=== PATIENT | male | born 1980 | race Caucasian/White ===

== ENCOUNTER 2019-04-23 17:31 | Inpatient (IN) | payer MEDICARE, MEDICAID ==
--- NOTE | 2019-04-23 18:01 | ED ---
Lower Extremity - HPI Summary HPI Summary: 38-year-old male presents to the emergency department today complaining of an open wound on his left foot which began today. Patient states he has been dealing with chronic wounds on his left lower extremity for"years" at a wound clinic. Patient states he was changing his dressing yesterday when a wound "popped" and drained yesterday evening on the dorsal aspect of his left second toe. Patient has had the left great toe and left third toe surgically amputated. Patient denies a past medical history of diabetes. Patient also has noted lower extremity edema and erythema bilaterally. Patient has no sensation in his lower extremities and there is a Charcot deformity noted of the left foot. Patient otherwise feels well and denies fevers, chest pain, abdominal pain, pain with urination nausea, vomiting, diarrhea. - History of Current Complaint Chief Complaint: EDSoftTissueLowExtr Stated Complaint: LT FOOT PAIN AND SWOLLEN PER PT Time Seen by Provider: 04/23/19 17:42 Hx Obtained From: Patient Mechanism Of Injury: Unknown Onset of Pain: Days, Prior to Arrival Onset/Duration: Still Present Severity Initially: Moderate Severity Currently: Severe Pain Intensity: 8 Pain Scale Used: 0-10 Numeric Timing: Constant Location: Is Discrete @ - Left foot Character Of Pain: Sharp Associated Signs And Symptoms: Positive: Swelling, Redness. Negative: Fever Aggravating Factor(s): Ambulation, Movement, Weight Bearing Alleviating Factor(s): Rest Able to Bear Weight: Yes - Allergies/Home Medications Allergies/Adverse Reactions: Allergies Allergy/AdvReac Type Severity Reaction Status Date / Time cefdinir Allergy See Comment Verified 04/23/19 17:38 Home Medications: Home Medications ALPRAZolam [Alprazolam] 1 tab PO TID PRN 04/23/19 [History Confirmed 04/23/19] Albuterol Sulfate [Albuterol Sulfate Hfa] 1 mdi INHH Q4HR PRN 04/23/19 [History Confirmed 04/23/19] Buprenorp/Nalox 8-2 MG FILM [Suboxone 8 mg-2 mg Sl Film] 1 film PO TID 04/23/19 [History Confirmed 04/23/19] Citalopram TAB* [CeleXA TAB*] 40 mg PO BEDTIME 04/23/19 [History Confirmed ] Fluticasone Propion/Salmeterol [Wixela 500-50 Inhub] 1 ea BOTH NARES Q6HR PRN [History Confirmed 04/23/19] Fluticasone-Salmeterol 500-50* [Advair Diskus 500-50*] 1 puff INH BID 04/23/19 [ History Confirmed 04/23/19] Gabapentin 2 tab PO TID 04/23/19 [History Confirmed 04/23/19] Gemfibrozil TAB* [Lopid TAB*] 600 mg PO BID 04/23/19 [History Confirmed ] Lisinopril [Zestril 5 MG-] 5 mg PO DAILY 04/23/19 [History Confirmed 04/23/19] Metoprolol Succinate 1 tab PO DAILY 04/23/19 [History Confirmed 04/23/19] Omeprazole 1 tab PO DAILY 04/23/19 [History Confirmed 04/23/19] Pentoxifylline CR TAB* [TRENtal CR TAB*] 400 mg PO Q8H 04/23/19 [History Confirmed 04/23/19] Tamsulosin CAP* [Flomax CAP*] 1 cap PO DAILY 04/23/19 [History Confirmed ] PMH/Surg Hx/FS Hx/Imm Hx Infectious Disease History: Yes Infectious Disease History: Denies: Traveled Outside the [place] in Last 30 Days Review of Systems Constitutional: Negative Eyes: Negative ENT: Negative Cardiovascular: Negative Respiratory: Negative Gastrointestinal: Negative Genitourinary: Negative Positive: Arthralgia, Decreased ROM, Edema Positive: Rash Neurological/Mental Status: Negative Psychological: Normal All Other Systems Reviewed And Are Negative: Yes Physical Exam - Summary Physical Exam Summary: Patient is no acute distress. There is bilateral lower extremity edema and erythema consistent with chronic venous insufficiency. There is an open wound approximately 0.5 cm in diameter to the plantar aspect of the left metatarsal. There is a new open wound draining purulent brown fluid from the dorsal aspect of the left second MCP. Patient has diminished sensation with a Charcot deformity of the left foot. Triage Information Reviewed: Yes Vital Signs On Initial Exam: Initial Vitals Temp Pulse Resp BP Pulse Ox 98.9 F 101 19 137/77 98 04/23/19 17:33 04/23/19 17:33 04/23/19 17:33 04/23/19 17:33 04/23/19 17:33 Vital Signs Reviewed: Yes Appearance: Positive: Well-Appearing, No Pain Distress, Well-Nourished Skin: Positive: Warm, Skin Color Reflects Adequate Perfusion Eyes: Positive: EOMI, ALPHONSO ENT: Positive: Hearing grossly normal Respiratory/Lung Sounds: Positive: Clear to Auscultation, Breath Sounds Present Cardiovascular: Positive: RRR, S1, S2 Abdomen Description: Positive: Nontender, Soft Bowel Sounds: Positive: Present Musculoskeletal: Positive: Strength/ROM Intact Neurological: Positive: Sensory/Motor Intact, Alert, Oriented to Person Place, Time, Facial Symmetry, Speech Normal Psychiatric: Positive: Normal, Affect/Mood Appropriate AVPU Assessment: Alert Procedures - Sedation Patient Received Moderate/Deep Sedation with Procedure: No Diagnostics - Vital Signs Vital Signs Temp Pulse Resp BP Pulse Ox 04/23/19 17:33 98.9 F 101 19 137/77 98 - Laboratory Result Diagrams: 04/24/19 05:20 04/24/19 05:20 Lab Statement: Any lab studies that have been ordered have been reviewed, and results considered in the medical decision making process. Lower Extremity Course/Dx - Course Course Of Treatment: 38-year-old male was evaluated in the emergency department today for left foot infection. Vitals noted and stable. Patient afebrile. X- ray was done which shows evidence of osteomyelitis of the second metatarsal. X- ray also shows fracture of the second distal metatarsal with dislocation. Laboratory studies returned showing leukocytosis with a white blood cell count of 14.1 with absolutely neutrophil count of 12. CRP is elevated at 85.67. ESR is 90. Blood glucose returned at 153. A1c 6.5. There are no significant electrolyte disturbances. Orthopedics, Dr. Duke was consulted at 1900 who believed the patient to be admitted for IV antibiotics and further evaluation of possible myelitis. Dr. Duke states she will see the patient tomorrow morning and that an MRI should be ordered for further evaluation. Hospitalist, Dr. Sebastian was consulted at 190 for admission of the patient for further evaluation and management. Patient was given IV clindamycin in the emergency department prior to admission to [facility]. - Diagnoses Differential Diagnosis/HQI/PQRI: Positive: Arthritis, Cellulitis, Fracture ( Closed), Infection, Osteomyelitis, Septic Arthritis Provider Diagnoses: Osteomyelitis, Left foot pain - Physician Notifications Discussed Care Of Patient With: Marichuy Duke - to admit the patient for further evaluation and management of osteomyelitis and IV antibiotics. Instructed by Provider To: Admit As Inpatient Admit/Transition Orders Completed By ED Provider: No Discharge ED - Sign-Out/Discharge Documenting (check all that apply): Patient Departure - Discharge Plan Condition: Stable Disposition: ADMITTED TO [facility] - Billing Disposition and Condition Condition: STABLE Disposition: Admitted to [facility] - Attestation Statements Provider Attestation: I was available for consult. This patient was seen by the TERI. The patient was not presented to, seen by, or examined by me. Connor Bowser MD
[2019-04-23 18:49] LABS: ABS Eosinophils 0.2 10^3/ul (0-0.6); ABS Lymphocytes 1.1 10^3/ul (1.0-4.8); ABS Monocytes 0.8 10^3/ul (0-0.8); Eosinophil % 1.6 %; Hematocrit 33 % (42-52); Hemoglobin 11.1 g/dL (14.0-18.0); Lymphocyte % 7.5 %; Mean Corpuscular HGB Conc 34 g/dL (31-36); Mean Corpuscular Hemoglobin 30 pg (27-31); Mean Corpuscular Volume 88 fL (80-94); Mean Platelet Volume 8.6 fL (7.4-10.4); Platelet Count 290 10^3/uL (150-450); Red Blood Count 3.77 10^6 /uL (4.18-5.48); Red Cell Distribution Width 14 % (10-15); White Blood Count 14.1 10^3/uL (3.5-10.8)
[2019-04-23] MEDS ORDERED: Clindamycin 600 MG/D5W BAG(*) 600 MG/50 ML BAG IV ONE (19:00)
[2019-04-23] MEDS ORDERED: Nicotine PATCH 14 MG/24 HR* PATCH TRANSDERM ONE (19:08)
[2019-04-23] MEDS ORDERED: Buprenorp/Nalox 8-2 MG FILM SL FILM ONE (19:10)
[2019-04-23 19:15] LABS: Albumin 3.8 g/dL (3.2-5.2); Albumin/Globulin Ratio 1.2 (1-3); BUN/Creatinine Ratio 20.5 (8-20); C Reactive Protein 85.67 mg/L (<8.01); Calcium 8.9 mg/dL (8.6-10.3); EGFR African American 134.8 (>60); EGFR Non-African American 111.4 (>60); Globulin 3.2 g/dL (2-4); Potassium 4.2 mmol/L (3.5-5.0); Total Bilirubin 0.2 mg/dL (0.2-1.0)
[2019-04-23 20:05] LABS: Erythrocyte Sed Rate 90 mm/Hr (0-14)
[2019-04-23] MEDS ORDERED: Albuterol HFA INHALER* 8 gm MDI INH PRN (20:17)
[2019-04-23] MEDS ORDERED: Acetaminophen TAB* 325 MG PO PRN (20:19)
[2019-04-23] MEDS ORDERED: Ondansetron INJ* 2 MG/ML VIAL IV PRN (20:19)
[2019-04-23] MEDS ORDERED: Nicotine Lozenge* mini 4 MG LOZNG.MINI MT PRN (20:23)
[2019-04-23] MEDS ORDERED: PROCHLORPERAZINE INJ 5 MG/ML 2 ML VIAL IV PRN (20:24)
[2019-04-23] MEDS ORDERED: Vancomycin(*) 2,000 MG in NS 0.9% 250 ML* 250 ML IVPB ONE (20:25)
[2019-04-23] MEDS ORDERED: Dextrose 50% Syringe 50 ML* 25 GM/50 ML SYRINGE IV PUSH PRN (20:28)
[2019-04-23] MEDS ORDERED: NS 0.9% 1000 ML** 1,000 ML IV SCH (20:30)
[2019-04-23] MEDS ORDERED: NS 0.9% 250 ML* 250 ML ONE (20:34)
[2019-04-23] MEDS ORDERED: Vancomycin(*) 2,000 MG in NS 0.9% 500 ML* 500 ML IVPB ONE (21:00)
[2019-04-23] MEDS ORDERED: Vancomycin per Pharmacy* NOTE FOLLOW UP SCH (21:00)
[2019-04-23] MEDS ORDERED: Citalopram TAB* 40 MG PO SCH (21:00)
[2019-04-23] MEDS: NS 0.9% 1000 ML** 2,000 ML IV ONE (21:13)
[2019-04-23] MEDS: Enoxaparin(*) 40 MG/0.4 ML SYR SUBCUT SCH (22:58)
[2019-04-23] MEDS: ALPRAZolam TAB* 0.5 MG PO PRN (22:58)
[2019-04-23] MEDS: Gabapentin CAP(*) 400 MG PO SCH (22:59)
[2019-04-23] MEDS: Gemfibrozil TAB* 600 MG PO SCH (23:00)
[2019-04-23] MEDS ORDERED: Pentoxifylline CR TAB* 400 MG PO SCH (23:00)
[2019-04-23] MEDS: Buprenorp/Nalox 8-2 MG FILM SL FILM SCH (23:02)
--- NOTE | 2019-04-23 23:28 | HP ---
ADMISSION HISTORY AND PHYSICAL: DATE OF ADMISSION: 04/23/19 PRIMARY CARE PROVIDER: PEÑA Brice PROVIDER: Gogo Montelongo NP ATTENDING PHYSICIAN: Dr. Mott * (DICTATED BY GOGO MONTELONGO NP) OTHER PROVIDER: Dr. Duke. CHIEF COMPLAINT: Left foot pain. HISTORY OF PRESENT ILLNESS: This is a 38-year-old male with past medical history significant for diabetes, hypertension, hyperlipidemia, MRSA, who came to the emergency room on 04/23/19 after a wound on his left foot opened last night and started to drain. He has been dealing with chronic wounds to his left lower extremity for the past 5 years. 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 He has had multiple amputations in the past and has been dealing with chronic nonhealing wounds. Yesterday, he was changing the dressing to his left foot where the wound on the dorsal aspect of his second toe "popped and started draining copious amounts of yoon fluid." He had day before feeling chills for the past week, but no fevers. In the emergency room, he received a dose of clindamycin and Suboxone at the dose that he normally takes. Nicotine patch and 2 L of IV fluids were ordered. Hospitalist were asked to evaluate the patient for admission. ED provider also spoke with Dr. Duke, who intends to see the patient tomorrow. PAST MEDICAL HISTORY: Charcot deformity of the left foot, MRSA, asthma, hyperlipidemia, diabetes type 2, and hypertension. PAST SURGICAL HISTORY: Left great toe and third toe amputation, right foot metatarsal amputation, gastric bypass. HOME MEDICATIONS: 1. Fluticasone/salmeterol 500/50 one puff inhalation b.i.d. 2. Lisinopril 5 mg p.o. daily. 3. Trental 400 mg p.o. q.8 hours. 4. Tamsulosin 0.4 mg p.o. daily. 5. Gemfibrozil 600 mg p.o. b.i.d. 6. Citalopram 40 mg p.o. at bedtime. 7. Gabapentin 800 mg p.o. t.i.d. 8. Suboxone film 8/2 mg 1 film sublingually t.i.d. 9. Alprazolam 1 mg p.o. t.i.d. p.r.n. 10. Albuterol inhaler 1 inhalation q.4 hours p.r.n. 11. Fluticasone propionate/salmeterol 500/50 one inhalation in bilateral nares q.6 hours p.r.n. 12. Metoprolol succinate 25 mg p.o. daily. 13. Omeprazole 20 mg p.o. daily. ALLERGIES: CEFDINIR. FAMILY HISTORY: Sister has depression and arthritis. He is unaware of past medical history of his parents. SOCIAL HISTORY: He is a 2-pack per day smoker since age 17. He denies any EtOH use, does smoke marijuana daily. He is on disability due to his legs. He is not and has 8 children. REVIEW OF SYSTEMS: A 12-point system review was performed, which was positive for chills, chronic wound to the left lower extremity, discoloration to bilateral lower extremities since he was a teenager. Denies any fever, dizziness, lightheadedness, chest pain, palpitations, shortness of breath, abdominal pain, nausea, vomiting, or issues moving his bowel or bladder. PHYSICAL EXAMINATION GENERAL: This is a well-developed obese young gentleman, seen sitting up in the bed, in no acute distress. VITAL SIGNS: 98.9 Fahrenheit, 84 pulse, 19 respirations, 94% oxygen on room air , and 127/63 blood pressure. HEENT: Conjunctivae pink and moist. PERRLA. EOMs intact. Oropharynx clear. Mucous membranes moist. NECK: Supple. RESPIRATORY: Inspiratory wheezes throughout bilateral lungs. No accessory muscle use noted. CARDIAC: S1, S2 present. Heart rate is regular. No murmurs, gallops, or rubs appreciated. ABDOMEN: Large, soft, nontender, nondistended with positive bowel sounds x4. MUSCULOSKELETAL: Normal range of motion in ankles, unable to move toes to the left foot well due to swelling and discomfort. Toes to the right foot are slightly reddened. SKIN: He has reddish blanching discoloration to the right lower extremity. There is spreading erythema and edema from the medial aspect of his left thigh extending down to his toes, it is worse throughout his calf with no opened areas in the calf, however, to the top of his left second toe, there is an open wound that is draining moderate amount of sanguineous yoon pus and there is a calloused wound to the plantar aspect of his left foot. The cap refill is within 3 seconds. NEURO: He has decreased sensation to the bilateral lower extremities, though he is able to move all extremities. No focal deficits appreciated. PSYCH: He is alert and oriented x4. Thought contents organized. PERTINENT LAB DATA: Sodium 133, BUN and creatinine ratio 20.5, glucose 163, hemoglobin A1c is 6.5, lactic acid 1.3, C-reactive protein 85.67, WBCs 14.1, RBCs 3.77, hemoglobin 11.1, hematocrit 33. DIAGNOSTIC STUDIES: Left foot x-ray showed fracture/dislocation of the second toe with findings concerning for osteomyelitis of the second metatarsal. ASSESSMENT AND PLAN: My impression is this is a 38-year-old male with past medical history significant for diabetes, hypertension, hyperlipidemia, and MRSA , who is being admitted on 04/23/19 for sepsis secondary to cellulitis and possible osteomyelitis of the left lower extremity. 1. Sepsis secondary to issues with lower extremity/possible osteomyelitis. Initially in the emergency room, heart rate was 101, white blood cell count 14.1 , ordered 2 L of normal saline bolus. He did receive clindamycin. Blood cultures were drawn. Lactic acid is below 2. He is normotensive. Heart rate has come down at this point. Due to his previous history of methicillin- resistant Staphylococcus aureus and severity of the infection, I changed the antibiotic to vancomycin and I ordered a PICC line to be placed. The patient stated that he has had 3 PICC lines with 6-week course treatments of vancomycin in the past for similar issues. Dr. Duke has been consulted and will see him in the a.m. and consult will be placed to Infectious Disease. The dressing should be changed to his left lower extremity once daily with 4x4s and Kerlix. Wound culture will be sent. He will be maintained on normal saline at 75 mL an hour for 2 bags and will be allowed to eat consistent carb diet. The patient has been worked up for peripheral vascular disease prior. He stated that he has had ABIs done twice, although most recent one being done 6 months ago and it was within normal limits. He may continue his Trental. 2. Nicotine dependence. He states that he has tried to quit several times in the past and even after a year of not smoking, he stated that he was still having withdrawal symptoms despite the use of Chantix and nicotine patches. He stated the moment that he has smoked another cigarette that his symptoms went away and he is not interested in cutting down in his smoking at this point, though he realizes that this is what he is contributing to his nonhealing wounds. During the hospital, he may have nicotine patch and nicotine lozenges. 4. Anxiety/depression. He may continue his citalopram and as needed lorazepam. 5. Diabetes type 2. His current hemoglobin A1c is 6.5. He stated that prior to his gastric bypass, he had been treated using a number of different medications, though he stated after his gastric bypass, his blood sugars improved and since the bypass, he has tried several different medications including insulin and metformin, though he states that he becomes hypoglycemic very easily. While he is here, I placed him on fingersticks a.c. with sliding scale Lispro insulin as I feel that this is also contributing to his nonhealing wounds. 6. Hyperlipidemia. He is to continue his gemfibrozil. 7. Hypertension. Continue lisinopril and metoprolol, has been normotensive thus far. 8. Diabetic neuropathy. He may continue his gabapentin and Suboxone. He stated that he used to take 15 mg of oxycodone for several years as provider switched him over to Suboxone, though he states he never abused the drug and lives in an 8/10 pain on a daily basis. 9. Benign prostatic hypertrophy. He can continue his tamsulosin. 10. DVT prophylaxis: Initiate Lovenox. 11. Code status: Full code. CONDITION: Guarded. DISPOSITION: Admit inpatient to [facility]. TIME SPENT: Time spent on the patient is about 60 minutes with 30 of that spent [id number]. GOGO MONTELONGO, NACHO [id number]/[facility] #: [id number] EDUARD
[2019-04-24] MEDS ORDERED: Ketorolac INJ* 30 MG/ML 1 ML VIAL IV PRN (01:08)
[2019-04-24] MEDS: Vancomycin(*) 1,000 MG in NS 0.9% 250 ML* 250 ML IV SCH ×4 (03:47→20:43)
[2019-04-24 05:35] LABS: ABS Basophils 0.1 10^3/ul (0-0.2); ABS Eosinophils 0.2 10^3/ul (0-0.6); ABS Monocytes 0.7 10^3/ul (0-0.8); Eosinophil % 2.9 %; Hematocrit 30 % (42-52); Hemoglobin 10.2 g/dL (14.0-18.0); Lymphocyte % 24.9 %; Mean Corpuscular HGB Conc 34 g/dL (31-36); Mean Corpuscular Hemoglobin 30 pg (27-31); Mean Corpuscular Volume 88 fL (80-94); Mean Platelet Volume 8.3 fL (7.4-10.4); Platelet Count 260 10^3/uL (150-450); Red Blood Count 3.41 10^6 /uL (4.18-5.48); Red Cell Distribution Width 14 % (10-15)
[2019-04-24 05:50] LABS: BUN/Creatinine Ratio 18.5 (8-20); Calcium 8.2 mg/dL (8.6-10.3); EGFR African American 166.4 (>60); EGFR Non-African American 137.5 (>60); Potassium 4.4 mmol/L (3.5-5.0)
[2019-04-24] MEDS ORDERED: Nicotine Patch Removal NOTE FOLLOW UP SCH (06:00)
[2019-04-24] MEDS: Nicotine PATCH 21 MG/24 HR* PATCH TRANSDERM SCH (07:03)
[2019-04-24] MEDS: ALPRAZolam TAB* 0.5 MG PO PRN ×2 (07:03→22:31)
[2019-04-24] MEDS: Insulin LISPRO* 1 UNITS UNIT SUBCUT SCH ×2 (07:06→12:07)
[2019-04-24] MEDS: Pentoxifylline CR TAB* 400 MG PO SCH ×3 (07:53→22:31)
[2019-04-24] MEDS: Gemfibrozil TAB* 600 MG PO SCH ×2 (09:35→20:41)
[2019-04-24] MEDS: Citalopram TAB* 40 MG PO SCH (09:35)
[2019-04-24] MEDS: Gabapentin CAP(*) 400 MG PO SCH ×3 (09:36→20:41)
[2019-04-24] MEDS: Metoprolol Succinate XL TAB* 25 MG PO SCH (09:36)
[2019-04-24] MEDS: Tamsulosin CAP* 0.4 MG PO SCH (09:36)
[2019-04-24] MEDS: Lisinopril TAB* 5 MG PO SCH (09:36)
[2019-04-24] MEDS: Pantoprazole TAB * 40 MG TAB PO SCH (09:38)
[2019-04-24] MEDS: Buprenorp/Nalox 8-2 MG FILM SL FILM SCH ×3 (09:38→20:40)
--- NOTE | 2019-04-24 09:56 | PN ---
Progress Note - Progress Note Date of Service: 04/24/19 Note: I saw and examined Ga. Please see Dr. Duke's consultation note for full H& P details. In brief, he is a 38-year-old man with diabetes. He has been dealing with left foot ulcers and infections for about 4 years. He has been followed by a floatman who has done a prior first ray amp and other various I& D's. He has been followed at the wound care clinic out of town for 4 years. a few days ago, the swelling and pain in his left foot increase. He then started getting drainage dorsally at the base of his second toe. This has been purulent and malodorous. He came into the emergency room last night and was started on antibiotics intravenously. The pain and pressure, and swelling have improved, but he is still getting purulent drainage from the foot. I did discuss with Ga the severity of his left foot infection. I do think he will need an amputation, at a minimum, of the forefoot. He understands and was expecting this. I do think we need an MRI to further define the extent of the infection and help determine the level of amputation. He is grateful for my time and attention. I would recommend an MRI of the left foot, ABIs, and an infectious disease consult. We will plan on surgery, likely in a few days, once this information has been obtained.
--- NOTE | 2019-04-24 12:29 | CONS ---
ORTHOPEDIC CONSULTATION: DATE OF CONSULT: 04/24/19 Thank you for this orthopedic consultation. CHIEF COMPLAINT: Left foot pain and drainage. HISTORY OF PRESENT ILLNESS: Mr. Van is a 38-year-old diabetic male who presented on 04/23/19 to [facility] with draining left foot wound. He reports he has had chronic draining wounds in his left foot for the past 5 years. He has been treated by a pasting machine operator in [place] and sees the wound clinic every week for the last 5 years. He has had multiple amputations, he had washouts. He has a history of MRSA infection. The patient reports over the last week he has had some chills and for 48 hours, a dorsal wound on his forefoot opened up and started draining copious amounts of fluid. He reports minimal 4/10 aching pain in the foot. He has minimal sensation there from diabetic neuropathy and Charcot deformity of the foot. He came to [facility] Emergency Room for a second opinion and was admitted to the hospitalist team for IV antibiotics. PAST MEDICAL HISTORY: Charcot deformity of the left foot, MRSA, asthma, chronic infected ulcers left foot, hyperlipidemia, diabetes, tobacco abuse, hypertension. PAST SURGICAL HISTORY: Multiple left foot amputations and washouts, right foot metatarsal amputation, gastric bypass surgery. HOME MEDICATIONS: 1. Fluticasone and salmeterol 500/50 one puff inhaled b.i.d. 2. Lisinopril 5 mg p.o. daily. 3. Trental 400 mg p.o. q.8 hours. 4. Tamsulosin 0.4 mg p.o. daily. 5. Gemfibrozil 600 mg p.o. b.i.d. 6. Citalopram 40 mg p.o. q.h.s. 7. Gabapentin 800 mg p.o. t.i.d. 8. Suboxone film 8/2 mg 1 film sublingually t.i.d. 9. Alprazolam 1 mg p.o. t.i.d. 10. Albuterol 1 inhalation q.4 hours p.r.n. 11. Metoprolol 25 mg p.o. daily. 12. Omeprazole 20 mg p.o. daily. ALLERGIES: CEFDINIR. FAMILY HISTORY: Depression, arthritis. SOCIAL HISTORY: The patient smokes 2 packs of cigarettes per day. He denies alcohol or marijuana use. He is on disability due to his chronic foot wounds. He is not . He has 8 children. REVIEW OF SYSTEMS: Fourteen systems reviewed with the patient today, positive for the left foot pain and drainage, left leg erythema and warmth, recent chills. He denies chest pain, shortness of breath, nausea, vomiting, headache, or dizziness. Otherwise, the patient reports review of systems is negative or not relevant. PHYSICAL EXAM: General: The patient is a morbidly obese male, no apparent distress. Alert and oriented x3. Pleasant mood and appropriate affect. Vitals : Temperature 98.2, heart rate 71, blood pressure 112/53. HEENT: Atraumatic, normocephalic. Pupils equal and reactive to light. Heart: S1 and S2. No murmurs, rubs, or gallops. Lungs: Clear to auscultation in all lung oro. No wheezes, rubs, or rhonchi. Abdomen: Soft, nontender, nondistended. Bowel sounds in all 4 quadrants. Left lower extremity: The patient's skin has a large draining wound along the first web space of the forefoot, also an open ulcer with minimal drainage along the plantar aspect of the first metatarsal. His entire forefoot is swollen and appears infected. Prior amps of several toes. He has significant erythema and swelling up to his knee. He has no sensation to light touch along the distal foot. He has 1+ PT palpable pulse. DIAGNOSTIC STUDIES/LAB DATA: Labs show white blood cells down from 14 to 8, hematocrit 30, platelets 260. Sodium 139, potassium 4.4, BUN/creatinine 4 and 12. Hemoglobin A1c 6.5. Calcium 8.2. CRP 85.67. ESR of 90. Radiographs: Foot x-ray shows Charcot foot. There are prior amps and a dislocated what appears to be second MTP joint or distal IP joint. ASSESSMENT AND PLAN: Mr. Van is a 38-year-old gentleman with advanced chronic infection in his left forefoot. He is now status post multiple surgeries and amputations. The patient and I discussed that he has a significant infection and I believe he will need further surgery. He is currently admitted to the hospitalist team and also has leg cellulitis. He is on IV vancomycin and does have a history of methicillin-resistant Staphylococcus aureus infection. The patient and I discussed the operative options. He does wish to have surgical washout and possible amputation. He understands the risks include, but are not limited to bleeding, continued infection, need for further surgeries , failure of the wound to heal, anesthesia complications, stroke, heart attack, blood clot and . He wishes to proceed. I have asked Dr. Cobos, our foot and ankle specialist, to assess the patient and give me recommendations. Thank you for this orthopedic consultation. [id number]/[facility] #: [id number] EDUARD
[2019-04-24] MEDS ORDERED: Vancomycin Trough Check NOTE FOLLOW UP ONE (14:30)
--- NOTE | 2019-04-24 16:08 | PN ---
Subjective Date of Service: 04/24/19 Interval History: Pt is feeling well. He states his foot is still painful. We spent a long time discussing the patient's fear that his blood sugar would drop if he did not have a regular diet despite him having an A1c of 6.5% that is c/w diabetes. He states he will refuse all medications for DM including sliding scale insulin. He is willing to talk with a dietitian to discuss better food choices. Objective Active Medications: Acetaminophen (Tylenol Tab*) 650 mg PO Q4H PRN PRN Reason: MILD PAIN or TEMP > 100.4 Last Admin: 04/23/19 22:58 Dose: 650 mg Albuterol (Ventolin Hfa Inhaler*) 1 puff INH Q4HR PRN PRN Reason: SOB/WHEEZING Alprazolam (Xanax Tab*) 1 mg PO TID PRN PRN Reason: aniexty Last Admin: 04/24/19 07:03 Dose: 1 mg Buprenorphine/Naloxone (Suboxone 8 Mg-2 Mg Sl Film) 1 each SL FILM TID [facility] Last Admin: 04/24/19 14:02 Dose: 1 each Citalopram Hydrobromide (Celexa Tab*) 40 mg PO DAILY [facility] Last Admin: 04/24/19 09:35 Dose: 40 mg Enoxaparin Sodium (Lovenox(*)) 40 mg SUBCUT Q24H [facility] Last Admin: 04/23/19 22:58 Dose: 40 mg Gabapentin (Neurontin Cap(*)) 800 mg PO TID [facility] Last Admin: 04/24/19 14:03 Dose: 800 mg Gemfibrozil (Lopid Tab*) 600 mg PO BID [facility] Last Admin: 04/24/19 09:35 Dose: 600 mg Sodium Chloride (Ns 0.9% 1000 Ml) 1,000 mls @ 75 mls/hr IV PER RATE [facility] Stop: 04/25/19 09:49 Last Admin: 04/24/19 00:50 Dose: 75 mls/hr Vancomycin HCl 1,000 mg/ (Sodium Chloride) 250 mls @ 166.667 mls/hr IV Q6H [facility] Last Admin: 04/24/19 15:36 Dose: 166.667 mls/hr Lisinopril (Prinivil Tab*) 5 mg PO DAILY [facility] Last Admin: 04/24/19 09:36 Dose: 5 mg Metoprolol Succinate (Toprol Xl Tab*) 25 mg PO DAILY [facility] Last Admin: 04/24/19 09:36 Dose: 25 mg Mometasone Furoate/Formoterol Fumar (Dulera 200/5 Mdi*) 2 puff INH BID [facility] Nicotine (Nicotine Patch 21 Mg/24 Hr*) 1 patch TRANSDERM DAILY@0800 [facility] Last Admin: 04/24/19 07:03 Dose: 1 patch Nicotine Polacrilex (Nicotine Lozenge Mini) 4 mg MT Q2H PRN PRN Reason: CRAVING Pantoprazole Sodium (Protonix Tab*) 40 mg PO DAILY [facility] Last Admin: 04/24/19 09:38 Dose: 40 mg Pentoxifylline (Trental Cr Tab*) 400 mg PO Q8H [facility] Last Admin: 04/24/19 15:36 Dose: 400 mg Pharmacy Consult (Vancomycin Per Pharmacy*) 1 note FOLLOW UP .VANC PER PHARMACY [facility]; Protocol Pharmacy Profile Note (Nicotine Patch Removal Note*) 1 note FOLLOW UP 0600 [facility] Last Admin: 04/24/19 06:37 Dose: 1 note Prochlorperazine Edisylate (Compazine Inj*) 10 mg IV Q6H PRN PRN Reason: NAUSEA/VOMITING Tamsulosin HCl (Flomax Cap*) 0.4 mg PO DAILY [facility] Last Admin: 04/24/19 09:36 Dose: 0.4 mg Vital Signs - 8 hr 04/24/19 04/24/19 04/24/19 08:20 09:36 09:53 Temperature 98.2 F Pulse Rate 71 Respiratory 19 18 16 Rate Blood Pressure 112/53 (mmHg) O2 Sat by Pulse 91 Oximetry 04/24/19 04/24/19 04/24/19 11:43 12:08 14:03 Temperature 98.2 F Pulse Rate 63 Respiratory 18 18 18 Rate Blood Pressure 106/51 (mmHg) O2 Sat by Pulse 91 Oximetry 04/24/19 15:00 Temperature 99.2 F Pulse Rate 75 Respiratory 16 Rate Blood Pressure 116/67 (mmHg) O2 Sat by Pulse 94 Oximetry Oxygen Devices in Use Now: None Appearance: Young morbidly obese male sitting up in bed, NAD Eyes: No Scleral Icterus Ears/Nose/Mouth/Throat: Mucous Membranes Moist Respiratory: Symmetrical Chest Expansion and Respiratory Effort, Clear to Auscultation Cardiovascular: NL Sounds; No Murmurs; No JVD, RRR, No Edema Abdominal: NL Sounds; No Tenderness; No Distention Skin: - - chronic skin discoloration of the left lower leg, foot is wrapped by ortho-will not take down to inspect myself. Neurological: Alert and Oriented x 3 Result Diagrams: 04/24/19 05:20 04/24/19 05:20 Microbiology and Other Data: Microbiology 04/23/19 21:30 Skin and Soft Tissue MRSA/MSSA (PCR - Final Foot Left Mrsa Negative S.aureus Negative Gram Stain - Final 04/23/19 19:36 Nasal Screen MRSA (PCR) - Final Nasal Mrsa Not Detected Assess/Plan/Problems-Billing Mr Van is a 38 yo M who has DM, obesity (s/p gastric bypass) and charcot deformity of the L foot who presented to the ER with c/o a wound draining copious amounts of yoon fluid on the L foot and was admitted for sepsis secondary to diabetic foot wound with associated cellulitis. - Patient Problems (1) Sepsis Current Visit: Yes Status: Acute Comment: Resolved. Septic secondary to diabetic foot infection and cellulitis. (2) Diabetic foot infection Current Visit: Yes Status: Acute Code(s): E11.628 - TYPE 2 DIABETES MELLITUS WITH OTHER SKIN COMPLICATIONS; L08.9 - LOCAL INFECTION OF THE SKIN AND SUBCUTANEOUS TISSUE, UNSP SNOMED Code(s): 821015064 Comment: Appreciate ortho input. He will likely need forefoot amputation. Continue vanco and add cefepime. ID consult tomorrow. (3) Cellulitis Current Visit: Yes Status: Acute Code(s): L03.90 - CELLULITIS, UNSPECIFIED SNOMED Code(s): 703635251 Comment: There was reportedly cellulitis streaking up the patient's leg, this has resolved. Continue current regimen of vanco but will add cefepime for gram negative coverage. ID consult tomorrow. (4) Type II diabetes mellitus Current Visit: Yes Status: Acute Comment: HbA1c is elevated at 6.5%. He refuses all medications for treatment of his DM. He claims he will develop severe hypoglycemia. I try to argue that in the setting of active infection and proposed amputation he needs tight blood sugar control to help with wound healing. He is willing to meet with a dietitian to discuss perhaps better food choices. He is willing to have his blood sugar checked. He also has diabetic neuropathy. Continue gabapentin and suboxone (pt claims he was started on suboxone for pain control for the neuropathy). (5) HTN (hypertension) Current Visit: Yes Status: Acute Code(s): I10 - ESSENTIAL (PRIMARY) HYPERTENSION SNOMED Code(s): 05138955 Comment: BP is under good control on his usual doses of lisinopril and metoprolol. (6) Obesity Current Visit: Yes Status: Acute Code(s): E66.9 - OBESITY, UNSPECIFIED SNOMED Code(s): 588940543 Comment: BMI 40. He is post gastric bypass. Nutrition consult pending. (7) DVT prophylaxis Current Visit: Yes Status: Acute Code(s): Z29.9 - ENCOUNTER FOR PROPHYLACTIC MEASURES, UNSPECIFIED SNOMED Code(s): 171038930 Comment: lovenox (8) Full code status Current Visit: Yes Status: Acute Code(s): Z78.9 - OTHER SPECIFIED HEALTH STATUS SNOMED Code(s): 006985851
[2019-04-24] MEDS ORDERED: Cefepime ADVAN(*) 1 GM in NS 0.9% 50 ML* 50 ML IVPB SCH (17:00)
[2019-04-24] MEDS ORDERED: Cefepime 1 GM in Dextrose(*) 1 GM/50 ML BAG IV SCH (17:24)
[2019-04-24] MEDS: Cefepime 1 GM in Dextrose(*) 1 GM/50 ML BAG IV SCH (18:06)
[2019-04-24] MEDS: Enoxaparin(*) 40 MG/0.4 ML SYR SUBCUT SCH (20:42)
[2019-04-24] MEDS: Mometasone/Formoter 200/5 MDI INH SCH (21:58)
[2019-04-24] MEDS ORDERED: Mometasone/Formoter 200/5 MDI INH SCH (23:00)
[2019-04-25] MEDS: Vancomycin(*) 1,000 MG in NS 0.9% 250 ML* 250 ML IV SCH ×4 (03:24→20:12)
[2019-04-25] MEDS: Cefepime 1 GM in Dextrose(*) 1 GM/50 ML BAG IV SCH ×2 (05:23→17:27)
[2019-04-25] MEDS: Pentoxifylline CR TAB* 400 MG PO SCH ×3 (07:35→22:31)
[2019-04-25] MEDS: Buprenorp/Nalox 8-2 MG FILM SL FILM SCH ×3 (07:40→20:06)
[2019-04-25] MEDS: Nicotine Patch Removal NOTE PATCH OFF SCH (07:41)
[2019-04-25] MEDS: Nicotine PATCH 21 MG/24 HR* PATCH TRANSDERM SCH (07:41)
--- NOTE | 2019-04-25 08:27 | PN ---
Subjective Date of Service: 04/25/19 Interval History: Pt is feeling well. He denies any CP, SOB, diarrhea. The wound continues to drain and is seeping through the dressing today. Objective Active Medications: Acetaminophen (Tylenol Tab*) 650 mg PO Q4H PRN PRN Reason: MILD PAIN or TEMP > 100.4 Last Admin: 04/23/19 22:58 Dose: 650 mg Albuterol (Ventolin Hfa Inhaler*) 1 puff INH Q4HR PRN PRN Reason: SOB/WHEEZING Alprazolam (Xanax Tab*) 1 mg PO TID PRN PRN Reason: aniexty Last Admin: 04/24/19 22:31 Dose: 1 mg Buprenorphine/Naloxone (Suboxone 8 Mg-2 Mg Sl Film) 1 each SL FILM TID [facility] Last Admin: 04/25/19 07:40 Dose: 1 each Citalopram Hydrobromide (Celexa Tab*) 40 mg PO DAILY [facility] Last Admin: 04/24/19 09:35 Dose: 40 mg Enoxaparin Sodium (Lovenox(*)) 40 mg SUBCUT Q24H [facility] Last Admin: 04/24/19 20:42 Dose: 40 mg Gabapentin (Neurontin Cap(*)) 800 mg PO TID [facility] Last Admin: 04/24/19 20:41 Dose: 800 mg Gemfibrozil (Lopid Tab*) 600 mg PO BID [facility] Last Admin: 04/24/19 20:41 Dose: 600 mg Vancomycin HCl 1,000 mg/ (Sodium Chloride) 250 mls @ 166.667 mls/hr IV Q6H [facility] Last Admin: 04/25/19 03:24 Dose: 166.667 mls/hr Cefepime HCl (Maxipime 1 Gm In Dextrose Duplex (*)) 1 gm in 50 mls @ 100 mls/ hr IV 0600,1800 [facility] Last Admin: 04/25/19 05:23 Dose: 100 mls/hr Lisinopril (Prinivil Tab*) 5 mg PO DAILY [facility] Last Admin: 04/24/19 09:36 Dose: 5 mg Metoprolol Succinate (Toprol Xl Tab*) 25 mg PO DAILY [facility] Last Admin: 04/24/19 09:36 Dose: 25 mg Mometasone Furoate/Formoterol Fumar (Dulera 200/5 Mdi*) 2 puff INH BID [facility] Last Admin: 04/24/19 21:58 Dose: Not Given Nicotine (Nicotine Patch 21 Mg/24 Hr*) 1 patch TRANSDERM DAILY@0800 [facility] Last Admin: 04/25/19 07:41 Dose: 1 patch Nicotine Polacrilex (Nicotine Lozenge Mini) 4 mg MT Q2H PRN PRN Reason: CRAVING Pantoprazole Sodium (Protonix Tab*) 40 mg PO DAILY [facility] Last Admin: 04/24/19 09:38 Dose: 40 mg Pentoxifylline (Trental Cr Tab*) 400 mg PO Q8H [facility] Last Admin: 04/25/19 07:35 Dose: 400 mg Pharmacy Consult (Vancomycin Per Pharmacy*) 1 note FOLLOW UP .VANC PER PHARMACY [facility]; Protocol Pharmacy Profile Note (Vancomycin Trough Check) 1 note FOLLOW UP 0830 [facility] Stop: 04/26/19 08:31 Pharmacy Profile Note (Nicotine Patch Removal Note*) 1 note PATCH OFF 0800 [facility] Last Admin: 04/25/19 07:41 Dose: 1 note Prochlorperazine Edisylate (Compazine Inj*) 10 mg IV Q6H PRN PRN Reason: NAUSEA/VOMITING Tamsulosin HCl (Flomax Cap*) 0.4 mg PO DAILY [facility] Last Admin: 04/24/19 09:36 Dose: 0.4 mg Vital Signs - 8 hr 04/25/19 04/25/19 04/25/19 00:52 03:34 07:58 Temperature 98.2 F 98.2 F Pulse Rate 69 70 Respiratory 16 16 16 Rate Blood Pressure 103/54 127/73 (mmHg) O2 Sat by Pulse 93 92 Oximetry Oxygen Devices in Use Now: None Appearance: Young obese male sitting up on the edge of the bed, NAD Eyes: No Scleral Icterus Ears/Nose/Mouth/Throat: Mucous Membranes Moist Respiratory: Symmetrical Chest Expansion and Respiratory Effort, Clear to Auscultation Cardiovascular: NL Sounds; No Murmurs; No JVD, RRR, No Edema Abdominal: NL Sounds; No Tenderness; No Distention Extremities: No Clubbing, Cyanosis Skin: No Nodules or Sclerosis, - - wound not inspected at this time- will try to coordinate with ID/ortho Neurological: Alert and Oriented x 3 Result Diagrams: 04/24/19 05:20 04/24/19 05:20 Microbiology and Other Data: Microbiology 04/23/19 21:30 Skin and Soft Tissue MRSA/MSSA (PCR - Final Foot Left Mrsa Negative S.aureus Negative Gram Stain - Final 04/23/19 19:36 Nasal Screen MRSA (PCR) - Final Nasal Mrsa Not Detected Assess/Plan/Problems-Billing Mr Van is a 38 yo M who has DM, obesity (s/p gastric bypass) and charcot deformity of the L foot who presented to the ER with c/o a wound draining copious amounts of yoon fluid on the L foot and was admitted for sepsis secondary to diabetic foot wound with associated cellulitis. - Patient Problems (1) Sepsis Current Visit: Yes Status: Acute Comment: Resolved. Septic secondary to diabetic foot infection and cellulitis. (2) Diabetic foot infection Current Visit: Yes Status: Acute Code(s): E11.628 - TYPE 2 DIABETES MELLITUS WITH OTHER SKIN COMPLICATIONS; L08.9 - LOCAL INFECTION OF THE SKIN AND SUBCUTANEOUS TISSUE, UNSP SNOMED Code(s): 353379195 Comment: Pt will likely need forefoot amputation, plan for MRI today to evaluate for osteo and determine the level for the amputation. Continue vanco and cefepime. ID consult today. ABIs also ordered to eval arterial blood supply. (3) Cellulitis Current Visit: Yes Status: Acute Code(s): L03.90 - CELLULITIS, UNSPECIFIED SNOMED Code(s): 319977493 Comment: There was reportedly cellulitis streaking up the patient's leg, this has resolved. Continue current regimen of vanco and cefepime. ID consult today. (4) Type II diabetes mellitus Current Visit: Yes Status: Acute Comment: HbA1c is elevated at 6.5%. He refuses all medications for treatment of his DM. He met with the dietitian yesterday. Snack plan has been made to limit the chance that he develops hypoglycemia. Continue to monitor sugars. So far they have been acceptable. (5) HTN (hypertension) Current Visit: Yes Status: Acute Code(s): I10 - ESSENTIAL (PRIMARY) HYPERTENSION SNOMED Code(s): 07223860 Comment: BP is under good control on his usual doses of lisinopril and metoprolol. (6) Obesity Current Visit: Yes Status: Acute Code(s): E66.9 - OBESITY, UNSPECIFIED SNOMED Code(s): 196175120 Comment: BMI 40. He is post gastric bypass. (7) DVT prophylaxis Current Visit: Yes Status: Acute Code(s): Z29.9 - ENCOUNTER FOR PROPHYLACTIC MEASURES, UNSPECIFIED SNOMED Code(s): 121369182 Comment: howard (8) Full code status Current Visit: Yes Status: Acute Code(s): Z78.9 - OTHER SPECIFIED HEALTH STATUS SNOMED Code(s): 088672439
[2019-04-25] MEDS: Gemfibrozil TAB* 600 MG PO SCH ×2 (09:12→20:06)
[2019-04-25] MEDS: Mometasone/Formoter 200/5 MDI INH SCH ×2 (09:12→19:52)
[2019-04-25] MEDS: Lisinopril TAB* 5 MG PO SCH (09:13)
[2019-04-25] MEDS: Gabapentin CAP(*) 400 MG PO SCH ×3 (09:13→20:05)
[2019-04-25] MEDS: Metoprolol Succinate XL TAB* 25 MG PO SCH (09:13)
[2019-04-25] MEDS: Citalopram TAB* 40 MG PO SCH (09:13)
[2019-04-25] MEDS: Pantoprazole TAB * 40 MG TAB PO SCH (09:14)
[2019-04-25] MEDS: Tamsulosin CAP* 0.4 MG PO SCH (09:14)
[2019-04-25] MEDS ORDERED: Buffered Lidocaine 1% SYRIN* 1 ML/SYRINGE INTRADERM ONE (12:30)
--- NOTE | 2019-04-25 13:41 | CONS ---
CONSULTATION REPORT: DATE OF CONSULT: 04/25/19 PRIMARY CARE PROVIDER: RAY Brice PROVIDER REQUESTING CONSULTATION: Gogo Montelongo NP PROVIDER: Jany Nazario NP ATTENDING PHYSICIAN: Dr. Allen Peralta.* (DICTATED BY JANY NAZARIO NP) IMPRESSION: 1. Left lower extremity cellulitis in the setting of neuropathic wound. Blood cultures with no growth to date. Initial culture with 2+ epithelial cells, 3+ gram positive cocci, and 3+ gram-variable bacilli. He is currently on broad- spectrum antibiotics. Foot x-ray from 04/23/19 showed a fracture dislocation of the left second toe, concern for osteomyelitis of the second metatarsal. MRI and ABIs are pending for this morning. CRP is elevated. Leukocytosis has resolved. He has been afebrile. 2. Morbid obesity. BMI 40. 3. Diabetes mellitus type 2, with peripheral neuropathy. The patient is not currently on any diabetic medications. Hemoglobin A1c is 6.5. RECOMMENDATIONS/PLAN: Recommend continuing cefepime and vanco for now. Once he has had surgery, and we have further cultures and information from the MRI, we will make a recommendation regarding antibiotics. Suspect the patient will likely require a long course of IV antibiotics in the setting of suspected chronic osteomyelitis. We will continue to follow along. HISTORY OF PRESENT ILLNESS: Mr. Van is a 38-year-old male with past medical history significant for Charcot deformity of the left foot, with multiple left foot infections; history of both staph and MRSA infections; asthma ; hyperlipidemia; type 2 diabetes, has been off medications for 7 years; hypertension; and obesity, who states that he has been having recurrent infections and wounds in his left foot for approximately the last 5 years. This started as a blister on his foot while he was breaking in a pair of shoes. He follows with a wound clinic and client experience specialist at [facility]. He states that the wounds will heal and then reopen. He states that otherwise he is feeling well. Denies any fevers, chills, nausea, vomiting, diarrhea. He reports chronic lower extremity discoloration since his 20s. He states that he has had circulation studies in the past and told that his circulation was fine. On the day of presentation when he was changing his dressing, he had noticed purulent drainage coming from the dorsal aspect of his second toe. He chronically has edema in both legs, but feels that the left leg has been worse for the last couple of days. The latest wound progressed from just being on the bottom on his left foot to an open area on the top of his foot near the second toe, he decided to present to the emergency room for further evaluation. While in the emergency room, he received IV antibiotics, IV fluids. He had labs significant for an elevated ESR of 90, leukocytosis with a white blood cell count of 14,000, elevated CRP of 85.67, and hemoglobin A1c of 6.5. He had a left foot x- ray as showing a fracture dislocation of the left second toe with findings concerning for osteomyelitis of the second metatarsal. He was referred to the hospitalist service for admission. While in the hospital, his leukocytosis resolved. He has been afebrile. The patient has been seen in consultation by Orthopedic Surgery, who recommended ABIs and an MRI, both of which are being completed this morning. Orthopedics plans to take the patient to surgery for an amputation of at least the left second toe, but the final procedure will be based off of his MRI results. PAST MEDICAL HISTORY: 1. Charcot deformity of the left foot. 2. Asthma. 3. Hyperlipidemia. 4. Diabetes mellitus type 2, has been off medications since gastric bypass. 5. Hypertension. 6. Morbid obesity. 7. Peripheral neuropathy. 8. BPH. 9. Tobacco abuse. PAST SURGICAL HISTORY: 1. Status post left first and second toe amputations. 2. Status post right fifth metatarsal amputation. 3. Status post gastric bypass 7 years ago. MEDICATIONS: Home medications: 1. Advair Diskus 500/50 one puff inhalation twice daily. 2. Lisinopril 5 mg by mouth daily. 3. Trental CR 400 mg by mouth every 8 hours. 4. Tamsulosin 0.4 mg by mouth daily. 5. Lopid 600 mg by mouth twice daily. 6. Celexa 40 mg by mouth at bedtime. 7. Gabapentin 800 mg by mouth 3 times daily. 8. Suboxone 8 mg/2 mg 1 film sublingual 3 times daily. 9. Alprazolam 1 tablet by mouth 3 times daily as needed for anxiety. 10. Albuterol sulfate MDI 1 to 2 puffs inhalation every 4 hours as needed for shortness of breath or wheeze. 11. Wixela 500/50 one spray to both nares every 6 hours as needed for nasal itching. 12. Metoprolol succinate 25 mg by mouth daily. 13. Omeprazole 20 mg by mouth daily. Hospital medications: 1. Acetaminophen 650 mg by mouth every 4 hours as needed for fever or pain. 2. Albuterol HFA inhaler 1 puff inhalation every 4 hours as needed for shortness of breath or wheeze. 3. Alprazolam 1 mg by mouth 3 times daily as needed for anxiety. 4. Suboxone 8 mg/2 mg 1 film sublingual 3 times daily. 5. Cefepime 1 g IV every 12 hours. 6. Citalopram 40 mg by mouth daily. 7. Lovenox 40 mg subcutaneous daily. 8. Gabapentin 800 mg by mouth 3 times daily. 9. Lopid 600 mg by mouth twice daily. 10. Lisinopril 5 mg by mouth daily. 11. Metoprolol succinate 25 mg by mouth daily. 12. Dulera 200/5 two puffs inhalation twice daily. 13. Nicotine patch 21 mg 1 patch transdermal daily. 14. Nicotine lozenge 4 mg by mouth every 2 hours as needed for nicotine cravings. 15. Protonix 40 mg by mouth daily. 16. Trental 400 mg by mouth every 8 hours. 17. Compazine 10 mg IV every 6 hours as needed for nausea. 18. Tamsulosin 0.4 mg by mouth daily. 19. Vancomycin 1000 mg IV every 6 hours. ALLERGIES: CEFDINIR caused thrush. FAMILY HISTORY: No family history of coronary artery disease. His mother was adopted, so he does not know any of his maternal family history. His father passed at age 53; he had a history of diabetes mellitus type 2. No family history of cancer. His father also with a history of recurrent infections. SOCIAL HISTORY: Denies alcohol use. He is a current smoker, smoking 2 packs a day since age 17. He smokes marijuana daily. REVIEW OF SYSTEMS: I performed a 10-point review of systems. All the pertinent positives and negatives are mentioned in the history of present illness. The remaining review of systems are negative. He denies any recent travel. PHYSICAL EXAM: Vital Signs: Temperature 98.2, heart rate 70, respiratory rate 16, O2 sat 92% on room air, blood pressure 127/73. General Appearance: He is alert, appears to be in no acute distress, sitting on the side of the bed. Head : Normocephalic, atraumatic. EENT: Extraocular movements are intact. No subconjunctival hemorrhage. Moist mucous membranes. Neck: Supple. No lymphadenopathy. Neurological: Alert and oriented. Cranial nerves II through XII are grossly intact. Cardiovascular: Regular rate and rhythm. S1 and S2 present. No murmurs, rubs, or gallops heard. Respiratory: No accessory muscle use. The lungs are clear to auscultation bilaterally. Abdomen: Bowel sounds present. Abdomen is large, obese, nontender. Extremities: There is 1 to 2+ bilateral lower extremity edema, the left greater than the right. Musculoskeletal: No clubbing or cyanosis noted. Exhibits good strength in all extremities. Psychological: Calm and cooperative. Skin: Bilateral lower extremities with hemosiderin staining. The left leg with dark erythema from the knee down. There is a dressing to the left foot with purulent drainage. This dressing was not removed. The left leg is slightly warm to touch compared to the right. DIAGNOSTIC STUDIES/LAB DATA: Sodium 134, potassium 4.4, chloride 106, CO2 of 29 , BUN 12, creatinine 0.65, glucose 92. White blood cell count 8, hemoglobin 10.2, hematocrit 30, platelet count 260. CRP on 04/23/19 was 85.67. Please see impression and recommendations outlined above, recommendations have been discussed with RAY Lopez and Dr. Kandice Carlos. Thank you for asking us to see Mr. Van in consultation. The case has been reviewed with my attending, Dr. Allen Peralta, who agrees with the plan of care. Reviewed by JANY NAZARIO, MICHAEL 04/25/19 0900 [id number]/[facility] #: [id number] EDUARD
--- NOTE | 2019-04-25 15:31 | PN ---
Progress Note - Progress Note Date of Service: 04/25/19 SOAP: Subjective: []Pt seen at bedside. He feels well and is eager for foot amp. Has been dealing with L foot infection for 5 years. Denies fever, chills, CP, SOB, dizziness, nausea. Objective: []Gen: NAD, nontoxic appearing LLE: quarter sized dorsal wound over 2nd metatarsal that is fluctuant and white centrally with a ring of erythema surrounding. Pea sized ulcer on the plantar surface, also over 2nd metatarsal. No expressible discharge but there is a large amount of purulence on the dressing. New dry dressing applied. Assessment: []Left foot infection - cellulitis, osteo 2nd metatarsal, abscess of forefoot Plan: []Heel wb lle hold chem dvt prophy at midnight for OR tomorrow NPO at midnight for OR tomorrow. Plan for TMA vs Chopart amp Left foot, amp level to be determined by Dr Cobos tomorrow. Patient is in agreement for L foot amputation at necessary level tomorrow, has undergone extensive unsuccessful non-op treatment and is eager for definitive treatment. Vital Signs Temp 98.5 F 04/25/19 11:36 Pulse 70 04/25/19 11:36 Resp 18 04/25/19 15:18 BP 130/71 04/25/19 11:36 Pulse Ox 93 04/25/19 11:36 Intake & Output 04/24/19 04/25/19 04/25/19 18:59 06:59 18:59 Intake Total 3960 2913 650 Balance 3960 2913 650 Weight 320 lb Intake: IV Fluids 420 93 NS (0.9%) 420 93 IVPB 500 565 ABX - CEFEPIME 55 ABX - VANCOMYCIN 500 510 Medicated IV 55 Cefepime 55 Oral 3040 2200 650 Other: Estimated Void Large Medium Medium # Bowel Movements 0 # Voids 5 2 5 Laboratory Last Values WBC 8.0 10^3/uL (3.5-10.8) 04/24/19 05:20 RBC 3.41 10^6 /uL (4.18-5.48) L 04/24/19 05:20 Hgb 10.2 g/dL (14.0-18.0) L 04/24/19 05:20 Hct 30 % (42-52) L 04/24/19 05:20 MCV 88 fL (80-94) 04/24/19 05:20 MCH 30 pg (27-31) 04/24/19 05:20 MCHC 34 g/dL (31-36) 04/24/19 05:20 RDW 14 % (10-15) 04/24/19 05:20 Plt Count 260 10^3/uL (150-450) 04/24/19 05:20 MPV 8.3 fL (7.4-10.4) 04/24/19 05:20 Neut % (Auto) 63.1 % 04/24/19 05:20 Lymph % (Auto) 24.9 % 04/24/19 05:20 [place] % (Auto) 8.5 % 04/24/19 05:20 Eos % (Auto) 2.9 % 04/24/19 05:20 Baso % (Auto) 0.6 % 04/24/19 05:20 Absolute Neuts (auto) 5.0 10^3/ul (1.5-7.7) 04/24/19 05:20 Absolute Lymphs (auto) 2.0 10^3/ul (1.0-4.8) 04/24/19 05:20 Absolute Monos (auto) 0.7 10^3/ul (0-0.8) 04/24/19 05:20 Absolute Eos (auto) 0.2 10^3/ul (0-0.6) 04/24/19 05:20 Absolute Basos (auto) 0.1 10^3/ul (0-0.2) 04/24/19 05:20 Absolute Nucleated RBC 0.0 10^3/ul 04/24/19 05:20 Nucleated RBC % 0.0 04/24/19 05:20 ESR 90 mm/Hr (0-14) H 04/23/19 18:31 Sodium 139 mmol/L (135-145) 04/24/19 05:20 Potassium 4.4 mmol/L (3.5-5.0) 04/24/19 05:20 Chloride 106 mmol/L (101-111) 04/24/19 05:20 Carbon Dioxide 29 mmol/L (22-32) 04/24/19 05:20 Anion Gap 4 mmol/L (2-11) 04/24/19 05:20 BUN 12 mg/dL (6-24) 04/24/19 05:20 Creatinine 0.65 mg/dL (0.67-1.17) L 04/24/19 05:20 Est GFR ( Amer) 166.4 (>60) 04/24/19 05:20 Est GFR (Non-Af Amer) 137.5 (>60) 04/24/19 05:20 BUN/Creatinine Ratio 18.5 (8-20) 04/24/19 05:20 Glucose 92 mg/dL (70-100) 04/24/19 05:20 POC Glucose (mg/dL) 118 mg/dL (70-100) H 04/25/19 11:34 Hemoglobin A1c 6.5 % (4.0-5.6) H 04/23/19 18:31 Lactic Acid 1.3 mmol/L (0.5-2.0) 04/23/19 18:26 Calcium 8.2 mg/dL (8.6-10.3) L 04/24/19 05:20 Total Bilirubin 0.20 mg/dL (0.2-1.0) 04/23/19 18:31 AST 11 U/L (13-39) L 04/23/19 18:31 ALT 18 U/L (7-52) 04/23/19 18:31 Alkaline Phosphatase 75 U/L (34-104) 04/23/19 18:31 C-Reactive Protein 85.67 mg/L (<8.01) H 04/23/19 18:31 Total Protein 7.0 g/dL (6.4-8.9) 04/23/19 18:31 Albumin 3.8 g/dL (3.2-5.2) 04/23/19 18:31 Globulin 3.2 g/dL (2-4) 04/23/19 18:31 Albumin/Globulin Ratio 1.2 (1-3) 04/23/19 18:31 Vancomycin Trough 11.8 mcg/mL 04/24/19 14:33
[2019-04-25 16:56] LABS: INR 1.14 (0.82-1.09)
[2019-04-25] MEDS: Enoxaparin(*) 40 MG/0.4 ML SYR SUBCUT SCH (20:07)
[2019-04-25] MEDS: ALPRAZolam TAB* 0.5 MG PO PRN (22:31)
[2019-04-26] MEDS: Vancomycin(*) 1,000 MG in NS 0.9% 250 ML* 250 ML IV SCH ×4 (03:40→22:09)
[2019-04-26] MEDS: Cefepime 1 GM in Dextrose(*) 1 GM/50 ML BAG IV SCH ×2 (05:34→20:57)
[2019-04-26] MEDS ORDERED: Buffered Lidocaine 1% SYRIN* 1 ML/SYRINGE INTRADERM ONE (06:00)
[2019-04-26] MEDS ORDERED: NS 0.9% 1000 ML** 1,000 ML IV SCH (07:30)
[2019-04-26] MEDS: Metoprolol Succinate XL TAB* 25 MG PO SCH (08:10)
[2019-04-26] MEDS: Gemfibrozil TAB* 600 MG PO SCH ×2 (08:10→21:05)
[2019-04-26] MEDS: Citalopram TAB* 40 MG PO SCH (08:10)
[2019-04-26] MEDS: Tamsulosin CAP* 0.4 MG PO SCH (08:10)
[2019-04-26] MEDS: Pantoprazole TAB * 40 MG TAB PO SCH (08:11)
[2019-04-26] MEDS: Gabapentin CAP(*) 400 MG PO SCH ×3 (08:11→21:05)
[2019-04-26] MEDS: Pentoxifylline CR TAB* 400 MG PO SCH ×3 (08:11→23:36)
[2019-04-26] MEDS: Buprenorp/Nalox 8-2 MG FILM SL FILM SCH ×3 (08:12→21:48)
[2019-04-26] MEDS: Nicotine PATCH 21 MG/24 HR* PATCH TRANSDERM SCH (08:13)
[2019-04-26] MEDS: Mometasone/Formoter 200/5 MDI INH SCH ×2 (08:14→19:52)
[2019-04-26] MEDS: Nicotine Patch Removal NOTE PATCH OFF SCH (08:17)
[2019-04-26] MEDS: Lisinopril TAB* 5 MG PO SCH (08:17)
[2019-04-26] MEDS ORDERED: Vancomycin Trough Check NOTE FOLLOW UP ONE (08:30)
[2019-04-26 08:47] LABS: Hematocrit 33 % (42-52); Hemoglobin 11.3 g/dL (14.0-18.0); Mean Corpuscular HGB Conc 34 g/dL (31-36); Mean Corpuscular Hemoglobin 30 pg (27-31); Mean Corpuscular Volume 87 fL (80-94); Mean Platelet Volume 8.6 fL (7.4-10.4); Platelet Count 286 10^3/uL (150-450); Red Blood Count 3.81 10^6 /uL (4.18-5.48); Red Cell Distribution Width 14 % (10-15); White Blood Count 5.6 10^3/uL (3.5-10.8)
[2019-04-26 09:02] LABS: Anion Gap 7 mmol/L (2-11); BUN/Creatinine Ratio 20.9 (8-20); Blood Urea Nitrogen 14 mg/dL (6-24); CO2 Carbon Dioxide 29 mmol/L (22-32); Chloride 103 mmol/L (101-111); EGFR African American 160.6 (>60); EGFR Non-African American 132.8 (>60); Glucose 89 mg/dL (70-100); Potassium 4.3 mmol/L (3.5-5.0); Sodium 139 mmol/L (135-145)
--- NOTE | 2019-04-26 09:23 | PN ---
Progress Note - Progress Note Date of Service: 04/26/19 SOAP: Subjective: CC: Left foot infection HPI: Mr. Van is a 38 yo male with PMH significant for obesity, DM2 (not currently treated), left foot charcot deformity, HLD, asthma, HTN, and peripheral neuropathy; who presented to the hospital with a left foot infection. Denies fever, chills, nausea, vomiting, or diarrhea. Objective: Vital Signs - 8 hr 04/26/19 04/26/19 04/26/19 03:38 08:11 08:27 Temperature 98.6 F 97.9 F Pulse Rate 81 56 Respiratory 16 16 12 Rate Blood Pressure 113/85 111/58 (mmHg) O2 Sat by Pulse 96 97 Oximetry Physical Exam: General: NAD, sitting up on the side of the bed Neurological: Alert and Oriented HEENT: Moist MM Cardiovascular: Heart rate regular Respiratory: Lung sounds clear Abdominal: Bowel sounds present; ABD soft, non tender and obese Skin: Laboratory Results - last 24 hr 04/25/19 04/26/19 04/26/19 17:02 08:12 08:28 WBC 5.6 RBC 3.81 L Hgb 11.3 L Hct 33 L MCV 87 MCH 30 MCHC 34 RDW 14 Plt Count 286 MPV 8.6 POC Glucose (mg/dL) 162 H 93 04/26/19 08:28 Sodium 139 Potassium 4.3 Chloride 103 Carbon Dioxide 29 Anion Gap 7 BUN 14 Creatinine 0.67 Est GFR ( Amer) 160.6 Est GFR (Non-Af Amer) 132.8 BUN/Creatinine Ratio 20.9 H Glucose 89 Calcium 9.0 Microbiology 04/23/19 19:00 Aerobic Blood Culture - Preliminary Blood Venous No Growth Day 2 Anaerobic Blood Culture - Preliminary No Growth Day 2 04/23/19 18:31 Aerobic Blood Culture - Preliminary Blood Venous No Growth Day 2 Anaerobic Blood Culture - Preliminary No Growth Day 2 04/23/19 21:30 Skin and Soft Tissue MRSA/MSSA (PCR - Final Foot Left Mrsa Negative S.aureus Negative Gram Stain - Final Wound Culture - Final 04/23/19 19:36 Nasal Screen MRSA (PCR) - Final Nasal Mrsa Not Detected Assessment: 1. Left foot infection. This is in the setting of DM, peripheral neuropathy, and chronic neuropathic wounds. Blood cultures with no growth to date. Wound culture with 2+ gm positive cocci and 3+ gm variable bacilli (per microbiology these appear to be CoNS and Corynebacterium, they do not feel these are pathogens and didn't run sensitivities on them). Afebrile and no leukocytosis. He is awaiting surgery later today with Orthopedics. ABIs with normal readings, but question if they are falsely elevated. 2. DM2 with peripheral neuropathy. 3. Morbid obesity. BMI 40. Plan: Continue cefepime and vancomycin for now. He will likely need an extended course of IV ABX in the setting of osteomyelitis.
[2019-04-26 09:24] LABS: % Iron Saturation 17 % (15-55); Iron 49 ug/dL (50-212); Total Iron Binding Capacity 288 mcg/dL (250-450); Transferrin 206 mg/dL (203-362)
[2019-04-26 09:44] LABS: Ferritin 40.2 ng/mL (24-336)
[2019-04-26] MEDS ORDERED: Acetaminophen TAB* 325 MG ONE (14:42)
[2019-04-26] MEDS: Acetaminophen TAB* 325 MG PO ONE ×2 (14:43→15:02)
[2019-04-26] MEDS ORDERED: Gabapentin CAP(*) 400 MG PO ONE (14:58)
[2019-04-26] MEDS: Lactated Ringers 1000 ML Bag* 1,000 ML IV SCH ×2 (15:09→19:46)
[2019-04-26] MEDS ORDERED: Midazolam* 1 MG/ML 2 ML VIAL (2 MG) ONE (15:44)
[2019-04-26] MEDS ORDERED: Bupivacaine 0.25% SDV PF* 10 ML VIAL INJ ONE (16:14)
[2019-04-26] MEDS ORDERED: Famotidine IV* 10 MG/ML 2 ML (20 mg) ONE (16:24)
[2019-04-26] MEDS ORDERED: Levalbuterol HFA INHALER* 1 PUFF MDI ONE (16:27)
[2019-04-26] MEDS ORDERED: Lidocaine 2% PF * 5 ML VIAL ONE (16:39)
[2019-04-26] MEDS ORDERED: Propofol* 10 MG/ML 20 ML BTL ONE (16:40)
[2019-04-26] MEDS ORDERED: Ondansetron INJ* 2 MG/ML VIAL ONE (16:40)
[2019-04-26] MEDS ORDERED: Naloxone* 0.4 MG/ML 1 ML VIAL IV PRN (16:50)
[2019-04-26] MEDS ORDERED: DiMENhydriNATE IV* 50 MG/ML VIAL IV PUSH PRN (16:50)
[2019-04-26] MEDS ORDERED: Levalbuterol 0.63MG/3ML NEB* UNIT OF USE INH PRN (16:50)
[2019-04-26] MEDS ORDERED: Buprenorp/Nalox 2-0.5 MG SL TAB SL PRN (16:52)
[2019-04-26] MEDS ORDERED: KETAMINE HCL* 50 MG/ML 10 ML VIAL ONE (17:00)
[2019-04-26] MEDS ORDERED: Ketorolac INJ* 30 MG/ML 1 ML VIAL ONE (17:14)
--- NOTE | 2019-04-26 18:03 | OP ---
Operative Report - Blank - Operative Report Date of Operation: 04/26/19 Note: PATIENT: Ga Van DATE OF : 1980 DATE OF SURGERY: 04/26/2019 SURGEON: Sachin Cobos MD PETROLEUM ENGINEER: RAY Liang, whos assistance was necessary for positioning, retraction, help with instrumentation, and closure. ANESTHESIOLOGIST: Dr. Maria PREOPERATIVE DIAGNOSIS: Left diabetic foot infection with ulcer, abscess, and osteomyelitis POSTOPERATIVE DIAGNOSIS: Left diabetic foot infection with ulcer, abscess, and osteomyelitis OPERATION: 1. Left foot transmetatarsal amputation 2. Left Achilles tendon lengthening ANESTHESIA: General IMPLANTS: none TOURNIQUET TIME: Less than 1 hour with a well-padded thigh tourniquet at 275mmHg. SPECIMENS: Foot sent to pathology and culture swabs to microbiology ESTIMATED BLOOD LOSS: minimal COMPLICATIONS: none STATUS: Stable from the operating room to the recovery room and then back to the hospital floor. INDICATIONS FOR PROCEDURE: Ga has had left foot infections and ulcers for the last 5 years, which recently worsened. Both operative and non operative treatment alternatives were reviewed. Further, the nature and risks of surgery were reviewed in careful detail. Our discussions regarding the risks of surgery included, but were not limited to, infection, wound problems, nerve injury, neuroma, RSD, persistent symptoms, blood clot, persistent or worsening infection, phantom limb pain, failure of the surgery, need for further amputation, and even the remote chance of catastrophic complication. DESCRIPTION OF PROCEDURE: The patient was seen in the preoperative holding unit and informed written consent was obtained. The appropriate extremity was marked. The patient was then brought to the operating room and carefully positioned on the operating room table. Anesthesia was induced. All bony prominences were padded with great care. A well-padded thigh tourniquet was placed. A chlorhexidine based pre- scrub was performed followed by a chloraprep prep and drape in standard sterile fashion. A surgical safety pause was then conducted in which we confirmed the appropriate patient, extremity, planned procedure, availability of equipment, indication and administration of prophylactic antibiotics, and DVT prophylaxis in the form of a compression boot on the non-surgical extremity. We began with Esmarch exsanguination of the limb, avoiding the involved foot, and inflated the tourniquet. We utilized a fish-mouth incision at the forefoot. I dissected down through the dorsal forefoot to the level of the metatarsals. Fluoroscopy was utilized to confirm the level of the amputation. An oscillating saw was used to osteotomize the third, fourth and fifth metatarsals. These were beveled to decrease prominence plantarly. A rongeur and rasp were used to round and smooth the bone edges. I removed the entirety of the second metatarsal, which was clearly osteomyelitic and not salvageable. The plantar half of the incision was completed and forefoot was then amputated. The foot was sent to pathology. The remaining tissue appeared healthy and viable. I then turned my attention to the Achilles tendon to prevent a progressive equinus contracture and overload of the amputation stump. I performed a triple- cut percutaneous tendon lengthening of the Achilles tendon utilizing a 15-blade scalpel. The ankle was then dorsiflexed confirming increased range of motion with dorsiflexion. At this point, the tourniquet was deflated. Hemostasis was obtained. We irrigated copiously. All remaining tissue appeared healthy and viable. We closed meticulously in layers utilizing #1 Vicryl for the deep layer, 3-0 Monocryl for the subdermal layer, and 2-0 prolene and drew for the skin. There were no bony prominences appreciated beneath the skin after closure. A sterile dressing was then applied followed by a splint with the ankle in neutral alignment. The patient was then awakened from anesthesia and transferred to the recovery room in stable condition. There were no complications. All needle and sponge counts were correct at the end of the case. ATTESTATION: I attest I was present and scrubbed and performed the critical portions of the procedure myself. POSTOPERATIVE PLAN: The patient will remain [id number] in the splint and will follow up will be in two weeks for a wound check, but we will likely leave the sutures in for 3-4 weeks. Antibiotic treatment will be guided by the infectious disease service.
[2019-04-26] MEDS ORDERED: Acetaminophen IV 1GM/100ML * 0 ML ONE (18:04)
[2019-04-26] MEDS ORDERED: fentaNYL* 50 MCG/ML 2 ML VIAL (100 MCG VIAL) ONE ×3 (18:04→19:09)
[2019-04-26] MEDS: fentaNYL* 50 MCG/ML 2 ML VIAL (100 MCG VIAL) IV PRN ×4 (18:05→19:10)
[2019-04-26] MEDS ORDERED: Lactated Ringers 1000 ML Bag* 1,000 ML IV SCH (21:00)
[2019-04-26] MEDS ORDERED: Ketorolac INJ* 30 MG/ML 1 ML VIAL IV PUSH ONE (22:15)
[2019-04-27] MEDS ORDERED: Morphine INJ* 4 MG/ML 1 ML SYRINGE (NEW SYRINGE VERSION) IV ONE (00:15)
[2019-04-27] MEDS ORDERED: oxyCODONE/Acetamin 5/325 MG* TAB PO ONE (02:38)
[2019-04-27] MEDS: Vancomycin(*) 1,000 MG in NS 0.9% 250 ML* 250 ML IV SCH ×4 (02:52→20:40)
[2019-04-27] MEDS: Cefepime 1 GM in Dextrose(*) 1 GM/50 ML BAG IV SCH ×3 (06:37→19:57)
[2019-04-27] MEDS ORDERED: oxyCODONE TAB* 5 MG TAB PO PRN (07:39)
[2019-04-27] MEDS ORDERED: HYDROmorphone INJ1* 1 MG/ML SYRINGE IV SLOW PU PRN (07:39)
--- NOTE | 2019-04-27 07:50 | PN ---
Subjective Date of Service: 04/26/19 Interval History: Pt is feeling well. Just waiting for surgery this evening. Pain is ok. Objective Active Medications: Acetaminophen (Tylenol Tab*) 650 mg PO Q4H PRN PRN Reason: MILD PAIN or TEMP > 100.4 Last Admin: 04/23/19 22:58 Dose: 650 mg Albuterol (Ventolin Hfa Inhaler*) 1 puff INH Q4HR PRN PRN Reason: SOB/WHEEZING Alprazolam (Xanax Tab*) 1 mg PO TID PRN PRN Reason: aniexty Last Admin: 04/25/19 22:31 Dose: 1 mg Buprenorphine/Naloxone (Suboxone 8 Mg-2 Mg Sl Film) 1 each SL FILM TID [facility] TO [facility] Citalopram Hydrobromide (Celexa Tab*) 40 mg PO DAILY [facility] Last Admin: 04/26/19 08:10 Dose: 40 mg Enoxaparin Sodium (Lovenox(*)) 40 mg SUBCUT Q24H [facility] Gabapentin (Neurontin Cap(*)) 800 mg PO TID [facility] Last Admin: 04/26/19 21:05 Dose: 800 mg Gemfibrozil (Lopid Tab*) 600 mg PO BID [facility] Last Admin: 04/26/19 21:05 Dose: 600 mg Hydromorphone HCl (Dilaudid Inj1s*) 1 mg IV SLOW PU Q4H PRN PRN Reason: PAIN - SEVERE Vancomycin HCl 1,000 mg/ (Sodium Chloride) 250 mls @ 166.667 mls/hr IV Q6H [facility] Last Admin: 04/27/19 02:52 Dose: 166.667 mls/hr Cefepime HCl (Maxipime 1 Gm In Dextrose Duplex (*)) 1 gm in 50 mls @ 100 mls/ hr IV 0630,2030 [facility] Last Admin: 04/27/19 06:37 Dose: 100 mls/hr Lisinopril (Prinivil Tab*) 5 mg PO DAILY [facility] Last Admin: 04/26/19 08:17 Dose: Not Given Metoprolol Succinate (Toprol Xl Tab*) 25 mg PO DAILY [facility] Last Admin: 04/26/19 08:10 Dose: 25 mg Mometasone Furoate/Formoterol Fumar (Dulera 200/5 Mdi*) 2 puff INH BID [facility] Last Admin: 04/26/19 19:52 Dose: 2 puff Nicotine (Nicotine Patch 21 Mg/24 Hr*) 1 patch TRANSDERM DAILY@0800 [facility] Last Admin: 04/26/19 08:13 Dose: 1 patch Nicotine Polacrilex (Nicotine Lozenge Mini) 4 mg MT Q2H PRN PRN Reason: CRAVING Oxycodone HCl (Roxycodone Tab*) 5 mg PO Q4H PRN PRN Reason: PAIN - MODERATE Pantoprazole Sodium (Protonix Tab*) 40 mg PO DAILY [facility] Last Admin: 04/26/19 08:11 Dose: 40 mg Pentoxifylline (Trental Cr Tab*) 400 mg PO Q8H [facility] Last Admin: 04/26/19 23:36 Dose: 400 mg Pharmacy Consult (Vancomycin Per Pharmacy*) 1 note FOLLOW UP .VANC PER PHARMACY [facility]; Protocol Pharmacy Profile Note (Nicotine Patch Removal Note*) 1 note PATCH OFF 0800 [facility] Last Admin: 04/26/19 08:17 Dose: 1 note Prochlorperazine Edisylate (Compazine Inj*) 10 mg IV Q6H PRN PRN Reason: NAUSEA/VOMITING Tamsulosin HCl (Flomax Cap*) 0.4 mg PO DAILY [facility] Last Admin: 04/26/19 08:10 Dose: 0.4 mg Vital Signs - 8 hr 04/27/19 04/27/19 04/27/19 00:19 02:27 02:50 Temperature 98.5 F Pulse Rate 74 Respiratory 18 18 18 Rate Blood Pressure 125/65 (mmHg) O2 Sat by Pulse 94 Oximetry 04/27/19 04/27/19 02:56 05:17 Temperature Pulse Rate Respiratory 18 18 Rate Blood Pressure (mmHg) O2 Sat by Pulse Oximetry Oxygen Devices in Use Now: None Appearance: Young obese male sitting up in bed, NAD Eyes: No Scleral Icterus Ears/Nose/Mouth/Throat: Mucous Membranes Moist Respiratory: Symmetrical Chest Expansion and Respiratory Effort, Clear to Auscultation Cardiovascular: NL Sounds; No Murmurs; No JVD, RRR, No Edema Abdominal: NL Sounds; No Tenderness; No Distention Extremities: No Clubbing, Cyanosis Skin: - - dressing not removed by myself Neurological: Alert and Oriented x 3 Result Diagrams: 04/26/19 08:28 03/03/20 08:28 Microbiology and Other Data: Microbiology 04/23/19 21:30 Skin and Soft Tissue MRSA/MSSA (PCR - Final Foot Left Mrsa Negative S.aureus Negative Gram Stain - Final 04/23/19 19:36 Nasal Screen MRSA (PCR) - Final Nasal Mrsa Not Detected Assess/Plan/Problems-Billing Mr Vna is a 38 yo M who has DM, obesity (s/p gastric bypass) and charcot deformity of the L foot who presented to the ER with c/o a wound draining copious amounts of yoon fluid on the L foot and was admitted for sepsis secondary to diabetic foot wound with associated cellulitis. - Patient Problems (1) Sepsis Current Visit: Yes Status: Acute Comment: Resolved. Septic secondary to diabetic foot infection and cellulitis. (2) Diabetic foot infection Current Visit: Yes Status: Acute Code(s): E11.628 - TYPE 2 DIABETES MELLITUS WITH OTHER SKIN COMPLICATIONS; L08.9 - LOCAL INFECTION OF THE SKIN AND SUBCUTANEOUS TISSUE, UNSP SNOMED Code(s): 849895978 Comment: Plan to go to the OR [facility] for either TMA or chopart amputation. Continue vanco and cefepime. Will likely need jail IV Abx per conversation with ID. (3) Cellulitis Current Visit: Yes Status: Acute Code(s): L03.90 - CELLULITIS, UNSPECIFIED SNOMED Code(s): 888729120 Comment: Resolved. Continue current regimen of vanco and cefepime. (4) Type II diabetes mellitus Current Visit: Yes Status: Acute Comment: Sugars have been under good control. Continue to monitor. (5) HTN (hypertension) Current Visit: Yes Status: Acute Code(s): I10 - ESSENTIAL (PRIMARY) HYPERTENSION SNOMED Code(s): 82212625 Comment: BP is under good control on his usual doses of lisinopril and metoprolol. (6) Obesity Current Visit: Yes Status: Acute Code(s): E66.9 - OBESITY, UNSPECIFIED SNOMED Code(s): 252969715 Comment: BMI 40. He is post gastric bypass. (7) DVT prophylaxis Current Visit: Yes Status: Acute Code(s): Z29.9 - ENCOUNTER FOR PROPHYLACTIC MEASURES, UNSPECIFIED SNOMED Code(s): 353996338 Comment: lovenox (8) Full code status Current Visit: Yes Status: Acute Code(s): Z78.9 - OTHER SPECIFIED HEALTH STATUS SNOMED Code(s): 717748519
[2019-04-27] MEDS: Pentoxifylline CR TAB* 400 MG PO SCH ×3 (07:52→23:16)
--- NOTE | 2019-04-27 07:56 | PN ---
Subjective Date of Service: 04/27/19 Interval History: Pt is having severe pain in his amputated foot. He describes burning pain and a severe throb in the foot. He otherwise has no complaints. Objective Active Medications: Acetaminophen (Tylenol Tab*) 650 mg PO Q4H PRN PRN Reason: MILD PAIN or TEMP > 100.4 Last Admin: 04/23/19 22:58 Dose: 650 mg Albuterol (Ventolin Hfa Inhaler*) 1 puff INH Q4HR PRN PRN Reason: SOB/WHEEZING Alprazolam (Xanax Tab*) 1 mg PO TID PRN PRN Reason: aniexty Last Admin: 04/25/19 22:31 Dose: 1 mg Buprenorphine/Naloxone (Suboxone 8 Mg-2 Mg Sl Film) 1 each SL FILM TID [facility] Citalopram Hydrobromide (Celexa Tab*) 40 mg PO DAILY [facility] Last Admin: 04/26/19 08:10 Dose: 40 mg Enoxaparin Sodium (Lovenox(*)) 40 mg SUBCUT Q24H [facility] Gabapentin (Neurontin Cap(*)) 800 mg PO TID [facility] Last Admin: 04/26/19 21:05 Dose: 800 mg Gemfibrozil (Lopid Tab*) 600 mg PO BID [facility] Last Admin: 04/26/19 21:05 Dose: 600 mg Hydromorphone HCl (Dilaudid Inj1s*) 1 mg IV SLOW PU Q4H PRN PRN Reason: PAIN - SEVERE Vancomycin HCl 1,000 mg/ (Sodium Chloride) 250 mls @ 166.667 mls/hr IV Q6H [facility] Last Admin: 04/27/19 02:52 Dose: 166.667 mls/hr Cefepime HCl (Maxipime 1 Gm In Dextrose Duplex (*)) 1 gm in 50 mls @ 100 mls/ hr IV 0630,2030 [facility] Last Admin: 04/27/19 06:37 Dose: 100 mls/hr Lisinopril (Prinivil Tab*) 5 mg PO DAILY [facility] Last Admin: 04/26/19 08:17 Dose: Not Given Metoprolol Succinate (Toprol Xl Tab*) 25 mg PO DAILY [facility] Last Admin: 04/26/19 08:10 Dose: 25 mg Mometasone Furoate/Formoterol Fumar (Dulera 200/5 Mdi*) 2 puff INH BID [facility] Last Admin: 04/26/19 19:52 Dose: 2 puff Nicotine (Nicotine Patch 21 Mg/24 Hr*) 1 patch TRANSDERM DAILY@0800 [facility] Last Admin: 04/26/19 08:13 Dose: 1 patch Nicotine Polacrilex (Nicotine Lozenge Mini) 4 mg MT Q2H PRN PRN Reason: CRAVING Oxycodone HCl (Roxycodone Tab*) 5 mg PO Q4H PRN PRN Reason: PAIN - MODERATE Pantoprazole Sodium (Protonix Tab*) 40 mg PO DAILY [facility] Last Admin: 04/26/19 08:11 Dose: 40 mg Pentoxifylline (Trental Cr Tab*) 400 mg PO Q8H [facility] Last Admin: 04/26/19 23:36 Dose: 400 mg Pharmacy Consult (Vancomycin Per Pharmacy*) 1 note FOLLOW UP .VANC PER PHARMACY [facility]; Protocol Pharmacy Profile Note (Nicotine Patch Removal Note*) 1 note PATCH OFF 0800 [facility] Last Admin: 04/26/19 08:17 Dose: 1 note Prochlorperazine Edisylate (Compazine Inj*) 10 mg IV Q6H PRN PRN Reason: NAUSEA/VOMITING Tamsulosin HCl (Flomax Cap*) 0.4 mg PO DAILY [facility] Last Admin: 04/26/19 08:10 Dose: 0.4 mg Vital Signs - 8 hr 04/27/19 04/27/19 04/27/19 00:19 02:27 02:50 Temperature 98.5 F Pulse Rate 74 Respiratory 18 18 18 Rate Blood Pressure 125/65 (mmHg) O2 Sat by Pulse 94 Oximetry 04/27/19 04/27/19 02:56 05:17 Temperature Pulse Rate Respiratory 18 18 Rate Blood Pressure (mmHg) O2 Sat by Pulse Oximetry Oxygen Devices in Use Now: None Appearance: Young obese male sitting up in bed, appearing to be in pain, NAD Eyes: No Scleral Icterus Ears/Nose/Mouth/Throat: Mucous Membranes Moist Respiratory: Symmetrical Chest Expansion and Respiratory Effort, Clear to Auscultation - anteriorly Cardiovascular: NL Sounds; No Murmurs; No JVD, RRR, No Edema Abdominal: NL Sounds; No Tenderness; No Distention Extremities: - - s/p L TMA-foot in post op dressing Neurological: Alert and Oriented x 3 Result Diagrams: 04/26/19 08:28 04/26/19 08:28 Microbiology and Other Data: Microbiology 04/23/19 21:30 Skin and Soft Tissue MRSA/MSSA (PCR - Final Foot Left Mrsa Negative S.aureus Negative Gram Stain - Final 04/23/19 19:36 Nasal Screen MRSA (PCR) - Final Nasal Mrsa Not Detected Assess/Plan/Problems-Billing Mr Van is a 38 yo M who has DM, obesity (s/p gastric bypass) and charcot deformity of the L foot who presented to the ER with c/o a wound draining copious amounts of yoon fluid on the L foot and was admitted for sepsis secondary to diabetic foot wound with associated cellulitis. - Patient Problems (1) Sepsis Current Visit: Yes Status: Acute Comment: Resolved. Septic secondary to diabetic foot infection and cellulitis. (2) Diabetic foot infection Current Visit: Yes Status: Acute Code(s): E11.628 - TYPE 2 DIABETES MELLITUS WITH OTHER SKIN COMPLICATIONS; L08.9 - LOCAL INFECTION OF THE SKIN AND SUBCUTANEOUS TISSUE, UNSP SNOMED Code(s): 145619144 Comment: Pt is s/p TMA on the Left. He is having severe pain today. He stopped taking his suboxone yesterday in anticiption of needing IV pain medication. He received some one time doses of medication overnight but still has severe pain. Will continue suboxone and give dilaudid to hopoefully overwhelm the suboxone and provide pain relief. Continue cefepime and vanco. (3) Cellulitis Current Visit: Yes Status: Acute Code(s): L03.90 - CELLULITIS, UNSPECIFIED SNOMED Code(s): 381801155 Comment: Resolved. Continue current regimen of vanco and cefepime. (4) Type II diabetes mellitus Current Visit: Yes Status: Acute Comment: Sugars have been under good control. Continue to monitor. (5) HTN (hypertension) Current Visit: Yes Status: Acute Code(s): I10 - ESSENTIAL (PRIMARY) HYPERTENSION SNOMED Code(s): 62890846 Comment: BP is under good control on his usual doses of lisinopril and metoprolol. (6) Obesity Current Visit: Yes Status: Acute Code(s): E66.9 - OBESITY, UNSPECIFIED SNOMED Code(s): 088198786 Comment: BMI 40. He is post gastric bypass. (7) DVT prophylaxis Current Visit: Yes Status: Acute Code(s): Z29.9 - ENCOUNTER FOR PROPHYLACTIC MEASURES, UNSPECIFIED SNOMED Code(s): 897403134 Comment: howard (8) Full code status Current Visit: Yes Status: Acute Code(s): Z78.9 - OTHER SPECIFIED HEALTH STATUS SNOMED Code(s): 350595645
[2019-04-27 08:09] LABS: ABS Eosinophils 0.2 10^3/ul (0-0.6); ABS Lymphocytes 1.3 10^3/ul (1.0-4.8); ABS Monocytes 0.7 10^3/ul (0-0.8); ABS Neutrophils 5.3 10^3/ul (1.5-7.7); Hematocrit 31 % (42-52); Hemoglobin 10.7 g/dL (14.0-18.0); Lymphocyte % 17.3 %; Mean Corpuscular HGB Conc 34 g/dL (31-36); Mean Corpuscular Hemoglobin 30 pg (27-31); Mean Corpuscular Volume 87 fL (80-94); Mean Platelet Volume 8.5 fL (7.4-10.4); Nucleated Red Blood Cells % 0.1; Platelet Count 251 10^3/uL (150-450); Red Cell Distribution Width 14 % (10-15); White Blood Count 7.4 10^3/uL (3.5-10.8)
[2019-04-27 08:30] LABS: BUN/Creatinine Ratio 16.7 (8-20); Calcium 8.6 mg/dL (8.6-10.3); EGFR African American 134.8 (>60); EGFR Non-African American 111.4 (>60); Potassium 4.6 mmol/L (3.5-5.0)
[2019-04-27] MEDS ORDERED: NS 0.9% 250 ML* 250 ML ONE ×2 (08:41→14:20)
[2019-04-27] MEDS: Nicotine PATCH 21 MG/24 HR* PATCH TRANSDERM SCH (08:47)
[2019-04-27] MEDS: Nicotine Patch Removal NOTE PATCH OFF SCH (08:48)
[2019-04-27] MEDS: Buprenorp/Nalox 8-2 MG FILM SL FILM SCH ×3 (08:49→20:40)
[2019-04-27] MEDS: Tamsulosin CAP* 0.4 MG PO SCH (08:50)
[2019-04-27] MEDS: Gemfibrozil TAB* 600 MG PO SCH ×2 (08:51→20:39)
[2019-04-27] MEDS: Gabapentin CAP(*) 400 MG PO SCH ×3 (08:52→20:39)
[2019-04-27] MEDS: Metoprolol Succinate XL TAB* 25 MG PO SCH (08:52)
[2019-04-27] MEDS: Lisinopril TAB* 5 MG PO SCH (08:54)
[2019-04-27] MEDS: Mometasone/Formoter 200/5 MDI INH SCH ×2 (08:54→22:01)
[2019-04-27] MEDS: Pantoprazole TAB * 40 MG TAB PO SCH (08:55)
[2019-04-27] MEDS: Citalopram TAB* 40 MG PO SCH (08:56)
--- NOTE | 2019-04-27 10:30 | PN ---
Progress Note - Progress Note Date of Service: 04/27/19 SOAP: Subjective: CC: Left foot infection HPI: Mr. Van is a 38 yo male with PMH significant for obesity, DM2 (not currently treated), left foot charcot deformity, HLD, asthma, HTN, and peripheral neuropathy; who presented to the hospital with a left foot infection. Now S/P left TMA. Denies fever, chills, nausea, vomiting, or diarrhea. He is having significant pain in the left foot today. Objective: Vital Signs 04/27/19 04/27/19 04/27/19 08:29 08:52 09:20 Temperature 98.0 F Pulse Rate 63 Respiratory 16 16 20 Rate Blood Pressure 120/68 (mmHg) O2 Sat by Pulse 98 Oximetry Physical Exam: General: NAD, sitting up on the side of the bed Neurological: Alert and Oriented HEENT: Moist MM Cardiovascular: Heart rate regular Respiratory: Lung sounds clear Abdominal: Bowel sounds present; ABD soft, non tender and obese Skin: No rash. Surgical DSG and splint to the left LE Laboratory Results - last 24 hr 04/27/19 04/27/19 04/27/19 01:46 05:41 07:50 WBC 7.4 RBC 3.60 L Hgb 10.7 L Hct 31 L MCV 87 MCH 30 MCHC 34 RDW 14 Plt Count 251 MPV 8.5 Neut % (Auto) 70.5 Lymph % (Auto) 17.3 Giles % (Auto) 8.8 Eos % (Auto) 3.0 Baso % (Auto) 0.4 Absolute Neuts (auto) 5.3 Absolute Lymphs (auto) 1.3 Absolute Monos (auto) 0.7 Absolute Eos (auto) 0.2 Absolute Basos (auto) 0.0 Absolute Nucleated RBC 0.0 Nucleated RBC % 0.1 POC Glucose (mg/dL) 131 H 93 04/27/19 07:50 Sodium 138 Potassium 4.6 Chloride 103 Carbon Dioxide 29 Anion Gap 6 BUN 13 Creatinine 0.78 Est GFR ( Amer) 134.8 Est GFR (Non-Af Amer) 111.4 BUN/Creatinine Ratio 16.7 Glucose 96 Calcium 8.6 Microbiology 04/26/19 17:05 Gram Stain - Final Wound 04/23/19 19:00 Aerobic Blood Culture - Preliminary Blood Venous No Growth Day 3 Anaerobic Blood Culture - Preliminary No Growth Day 3 04/23/19 18:31 Aerobic Blood Culture - Preliminary Blood Venous No Growth Day 3 Anaerobic Blood Culture - Preliminary No Growth Day 3 04/23/19 21:30 Skin and Soft Tissue MRSA/MSSA (PCR - Final Foot Left Mrsa Negative S.aureus Negative Gram Stain - Final Wound Culture - Final 04/23/19 19:36 Nasal Screen MRSA (PCR) - Final Nasal Mrsa Not Detected Assessment: 1. Left foot infection. Cellulitis with chronic osteomyelitis. This is in the setting of DM, peripheral neuropathy, and chronic neuropathic wounds. MRI with osteomyelitis of the 2nd metatarsal. Blood cultures with no growth to date. Wound culture with 2+ gm positive cocci and 3+ gm variable bacilli (per microbiology these appear to be CoNS and Corynebacterium, lab doesn't feel these are pathogens and didn't run sensitivities on them). Afebrile and no leukocytosis. He is awaiting surgery later today with Orthopedics. ABIs with normal readings, but question if they are falsely elevated, Plan for Dr. Melendez to see the Pt later today. S/P left TMA, POD #1. 2. DM2 with peripheral neuropathy. 3. Morbid obesity. BMI 40. Plan: Continue cefepime and vancomycin while in the hospital. Discharge Plan: Dalvance 1500 mg IV x 1, followed by repeat dose 7 days later. He should also have Cipro 500 mg PO BID for 2 weeks. Followup with ID outpatient. Will plan on followup labs at the time of the last dose of Dalvance. 25 minutes floor time: > 50% spent with the patient discussing discharge plan, followup and when to call the office (rash, fever, diarrhea).
[2019-04-27] MEDS: oxyCODONE TAB* 5 MG TAB PO PRN ×3 (11:33→20:38)
[2019-04-27] MEDS: ALPRAZolam TAB* 0.5 MG PO PRN ×2 (11:33→23:16)
[2019-04-27] MEDS: HYDROmorphone INJ1* 1 MG/ML SYRINGE IV SLOW PU PRN ×3 (12:07→20:39)
[2019-04-27] MEDS: Enoxaparin(*) 40 MG/0.4 ML SYR SUBCUT SCH (12:08)
--- NOTE | 2019-04-27 13:32 | PN ---
Progress Note - Progress Note Date of Service: 04/27/19 SOAP: Subjective: []Pt seen at bedside. He has burning pain into the left foot. Denies fever, chills, CP, SOB, dizziness or nausea. Objective: []Gen: NAD, appears well LLE: Dressing CDI, no erythema proximally R calf supple and nontender Assessment: [] Left diabetic foot infection with ulcer, abscess, and osteomyelitis pod1 sp 1. Left foot transmetatarsal amputation 2. Left Achilles tendon lengthening Wound culture with 2+ gm positive cocci and 3+ gm variable bacilli Plan: []NWB LLE lovenox 40 mg sq qd Vascular consult later today Cont cefepime and vanco. If no vasc intervention needed anticipate he can DC tomorrow Vital Signs Temp 99.6 F 04/27/19 11:20 Pulse 74 04/27/19 11:20 Resp 20 04/27/19 12:07 BP 117/64 04/27/19 11:20 Pulse Ox 94 04/27/19 11:20 Intake & Output 04/26/19 04/27/19 04/27/19 18:59 06:59 18:59 Intake Total 1200 1085 Output Total 0 1300 600 Balance 1200 -215 -600 Intake: IV Fluids 1200 LR 1200 IVPB 305 ABX - CEFEPIME 55 ABX - VANCOMYCIN 250 Oral 0 780 Output: Urine 0 1300 600 Other: # Bowel Movements 0 Laboratory Last Values WBC 7.4 10^3/uL (3.5-10.8) 04/27/19 07:50 RBC 3.60 10^6 /uL (4.18-5.48) L 04/27/19 07:50 Hgb 10.7 g/dL (14.0-18.0) L 04/27/19 07:50 Hct 31 % (42-52) L 04/27/19 07:50 MCV 87 fL (80-94) 04/27/19 07:50 MCH 30 pg (27-31) 04/27/19 07:50 MCHC 34 g/dL (31-36) 04/27/19 07:50 RDW 14 % (10-15) 04/27/19 07:50 Plt Count 251 10^3/uL (150-450) 04/27/19 07:50 MPV 8.5 fL (7.4-10.4) 04/27/19 07:50 Neut % (Auto) 70.5 % 04/27/19 07:50 Lymph % (Auto) 17.3 % 04/27/19 07:50 Gilliam % (Auto) 8.8 % 04/27/19 07:50 Eos % (Auto) 3.0 % 04/27/19 07:50 Baso % (Auto) 0.4 % 04/27/19 07:50 Absolute Neuts (auto) 5.3 10^3/ul (1.5-7.7) 04/27/19 07:50 Absolute Lymphs (auto) 1.3 10^3/ul (1.0-4.8) 04/27/19 07:50 Absolute Monos (auto) 0.7 10^3/ul (0-0.8) 04/27/19 07:50 Absolute Eos (auto) 0.2 10^3/ul (0-0.6) 04/27/19 07:50 Absolute Basos (auto) 0.0 10^3/ul (0-0.2) 04/27/19 07:50 Absolute Nucleated RBC 0.0 10^3/ul 04/27/19 07:50 Nucleated RBC % 0.1 04/27/19 07:50 ESR 90 mm/Hr (0-14) H 04/23/19 18:31 INR (Anticoag Therapy) 1.14 (0.82-1.09) H 04/25/19 16:35 Sodium 138 mmol/L (135-145) 04/27/19 07:50 Potassium 4.6 mmol/L (3.5-5.0) 04/27/19 07:50 Chloride 103 mmol/L (101-111) 04/27/19 07:50 Carbon Dioxide 29 mmol/L (22-32) 04/27/19 07:50 Anion Gap 6 mmol/L (2-11) 04/27/19 07:50 BUN 13 mg/dL (6-24) 04/27/19 07:50 Creatinine 0.78 mg/dL (0.67-1.17) 04/27/19 07:50 Est GFR ( Amer) 134.8 (>60) 04/27/19 07:50 Est GFR (Non-Af Amer) 111.4 (>60) 04/27/19 07:50 BUN/Creatinine Ratio 16.7 (8-20) 04/27/19 07:50 Glucose 96 mg/dL (70-100) 04/27/19 07:50 POC Glucose (mg/dL) 139 mg/dL (70-100) H 04/27/19 12:16 Hemoglobin A1c 6.5 % (4.0-5.6) H 04/23/19 18:31 Lactic Acid 1.3 mmol/L (0.5-2.0) 04/23/19 18:26 Calcium 8.6 mg/dL (8.6-10.3) 04/27/19 07:50 Iron 49 ug/dL (50-212) L 04/26/19 08:28 TIBC 288 mcg/dL (250-450) 04/26/19 08:28 % Saturation 17 % (15-55) 04/26/19 08:28 Unsat Iron Binding < 273 ug/dL 04/26/19 08:28 Transferrin 206 mg/dL (203-362) 04/26/19 08:28 Ferritin 40.2 ng/mL (24-336) 04/26/19 08:28 Total Bilirubin 0.20 mg/dL (0.2-1.0) 04/23/19 18:31 AST 11 U/L (13-39) L 04/23/19 18:31 ALT 18 U/L (7-52) 04/23/19 18:31 Alkaline Phosphatase 75 U/L (34-104) 04/23/19 18:31 C-Reactive Protein 85.67 mg/L (<8.01) H 04/23/19 18:31 Total Protein 7.0 g/dL (6.4-8.9) 04/23/19 18:31 Albumin 3.8 g/dL (3.2-5.2) 04/23/19 18:31 Globulin 3.2 g/dL (2-4) 04/23/19 18:31 Albumin/Globulin Ratio 1.2 (1-3) 04/23/19 18:31 Vancomycin Trough 13.7 mcg/mL 04/26/19 08:28
--- NOTE | 2019-04-27 19:28 | CONSULT ---
Consult Consult: Date of service 04/27/2019 Reason for consultation: Evaluate for flow-limiting vasculopathy in the presence of chronic lower extremity wound requiring left foot transmetatarsal amputation Requesting service: Orthopedic foot and ankle surgery. Dr. Cobos. Date of hospital admission: 04/23/2019 HISTORY OF PRESENT ILLNESS: Mr. Van is a 38-year-old male with past medical history significant for Charcot deformity of the left foot, multiple left foot infections; history of both staph and MRSA infections; asthma; hyperlipidemia; type 2 diabetes (has been off medications for 7 years); hypertension; and obesity, who presented with recurrent infections and wounds in his left foot for approximately the last 5 years. He reports that since his gastric bypass surgery 8 years ago in [place], he has not been hyperglycemic and was taken off diabetes medications. This started as a blister on his foot while he was breaking in a pair of shoes. He follows with a wound clinic and food stylist at [facility]. He states that the wounds will heal and then reopen. When the wound progressed from just being on the bottom on his left foot to an open area on the top of his foot near the second toe, he presented to the emergency room for further evaluation. He denies any symptoms characteristic of claudication or night time rest pain. He was admitted from the emergency Department 04/23/2019 and received medical therapy and antibiotic therapy. On 04/26/2019 he underwent left foot transmetatarsal amputation and left Achilles tendon lengthening. He states that otherwise he is feeling well. Denies any fevers, chills, nausea , vomiting, diarrhea. He reports chronic lower extremity discoloration since his 20s. He chronically has edema in both legs, but feels that the left leg has been more edematous than usual prior to presenting to the emergency department. He was admitted from the emergency Department 04/23/2019 and received medical therapy and antibiotic therapy. On 04/26/2019 he underwent left foot transmetatarsal amputation and left Achilles tendon lengthening. PAST MEDICAL HISTORY: 1. Charcot deformity of the left foot. 2. Asthma. 3. Hyperlipidemia. 4. Diabetes mellitus type 2, has been off medications since gastric bypass. 5. Hypertension. 6. Morbid obesity. 7. Peripheral neuropathy. 8. BPH. 9. Tobacco abuse. PAST SURGICAL HISTORY: 1. Status post left first and second toe amputations. 2. Status post right fifth metatarsal amputation. 3. Status post gastric bypass 7 years ago. (HOME) MEDICATIONS: 1. Advair Diskus 500/50 one puff inhalation twice daily. 2. Lisinopril 5 mg by mouth daily. 3. Trental CR 400 mg by mouth every 8 hours. 4. Tamsulosin 0.4 mg by mouth daily. 5. Lopid 600 mg by mouth twice daily. 6. Celexa 40 mg by mouth at bedtime. 7. Gabapentin 800 mg by mouth 3 times daily. 8. Suboxone 8 mg/2 mg 1 film sublingual 3 times daily. 9. Alprazolam 1 tablet by mouth 3 times daily as needed for anxiety. 10. Albuterol sulfate MDI 1 to 2 puffs inhalation every 4 hours as needed for shortness of breath or wheeze. 11. Wixela 500/50 one spray to both nares every 6 hours as needed for nasal itching. 12. Metoprolol succinate 25 mg by mouth daily. 13. Omeprazole 20 mg by mouth daily. Hospital medications: 1. Acetaminophen 650 mg by mouth every 4 hours as needed for fever or pain. 2. Albuterol HFA inhaler 1 puff inhalation every 4 hours as needed for shortness of breath or wheeze. 3. Alprazolam 1 mg by mouth 3 times daily as needed for anxiety. 4. Suboxone 8 mg/2 mg 1 film sublingual 3 times daily. 5. Cefepime 1 g IV every 12 hours. 6. Citalopram 40 mg by mouth daily. 7. Lovenox 40 mg subcutaneous daily. 8. Gabapentin 800 mg by mouth 3 times daily. 9. Lopid 600 mg by mouth twice daily. 10. Lisinopril 5 mg by mouth daily. 11. Metoprolol succinate 25 mg by mouth daily. 12. Dulera 200/5 two puffs inhalation twice daily. 13. Nicotine patch 21 mg 1 patch transdermal daily. 14. Nicotine lozenge 4 mg by mouth every 2 hours as needed for nicotine cravings. 15. Protonix 40 mg by mouth daily. 16. Trental 400 mg by mouth every 8 hours. 17. Compazine 10 mg IV every 6 hours as needed for nausea. 18. Tamsulosin 0.4 mg by mouth daily. 19. Vancomycin 1000 mg IV every 6 hours. ALLERGIES: CEFDINIR caused thrush. FAMILY HISTORY: No family history of coronary artery disease. His mother was adopted, so he does not know any of his maternal family history. His father passed at age 53; he had a history of diabetes mellitus type 2. His father also with a history of recurrent infections. SOCIAL HISTORY: Denies alcohol use. He is a current smoker, smoking 2 packs a day since age 17. He smokes marijuana daily. REVIEW OF SYSTEMS: I performed a 10-point review of systems. All the pertinent positives and negatives are mentioned in the history of present illness. The remaining review of systems are negative. PHYSICAL EXAM: NAD, AAO x 3 RRR, S1/S2 CTAB Abdomen is soft 2+ pulses palpated at bilateral PRODUCT TECHNICIAN, pop and right pedal arteries (left foot and lower leg is bandaged preventing vascular exam) Brawny hyperpigmentation of right lower leg in the "gaiter distribution" Selected Entries 04/27/19 14:11 Temperature 98.7 F Temperature Oral Source Pulse Rate 89 Respiratory 19 Rate Blood Pressure 131/68 (mmHg) Blood Pressure 89 Mean O2 Sat by Pulse 95 Oximetry Patient on Room Yes Air RELEVANT LABS: Laboratory Tests 04/23/19 04/27/19 04/27/19 18:31 01:46 05:41 WBC 14.1 H RBC Hgb Hct BUN Creatinine Est GFR (Non-Af Amer) POC Glucose (mg/dL) 131 H 93 Calcium 04/27/19 04/27/19 04/27/19 07:50 07:50 12:16 WBC 7.4 RBC 3.60 L Hgb 10.7 L Hct 31 L BUN 13 Creatinine 0.78 Est GFR (Non-Af Amer) 111.4 POC Glucose (mg/dL) 139 H Calcium 8.6 04/27/19 16:50 WBC RBC Hgb Hct BUN Creatinine Est GFR (Non-Af Amer) POC Glucose (mg/dL) 100 Calcium RELEVANT IMAGING: Patient Name: PEDRO VAN Medical Record#: [id number] Ordering Physician: Celestina BELL Acct.#: [id number] : 1980 Age: 38 Sex: M Location: SURGICAL STAY UNIT Exam Date: 04/25/19813 ADM Status: ADM IN Order Information: VL ANK/ BRACHIAL INDICES Accession Number: [id number] CPT: 37429 INDICATION: Dorsal left foot wound. Amputation of the left great toe. COMPARISON: None. TECHNIQUE: Ankle-brachial indices and Doppler tracings were obtained of the lower extremities bilaterally. Volume pulse recordings were acquired at the bilateral ankles. REPORT: Ankle-brachial indices: Right: Value (SBP) Index Brachial: 110 Posterior tibialis: 119 1.04 Dorsalis pedis: 122 1.07 Digit: 128 1.12 Left: Value (SBP) Index Brachial: 114 Posterior tibialis: 133 1.17 Dorsalis pedis: 130 1.14 Doppler waveforms (acquired at rest): In the interrogated lower extremity arteries, Doppler waveforms are triphasic in the right lower extremity and biphasic with modestly reduced amplitude and waveform broadening in the left pedal arteries. Volume pulse recordings (acquired at rest): Volume pulse recordings, measured at the bilateral ankles, are symmetric. IMPRESSION: Normal ABIs bilaterally. There is small reduction in the amplitude of the arterial waveforms recorded at the left pedal arteries relative to the right. <Electronically signed by Obed Melendez MD in OV> 04/25/19 2753 Summary: 38-year-old status post left transmetatarsal amputation for chronic and recurrent left foot wounds. Plan/Recommendations: 1. OLIVA and physical exam findings indicate that there is not any significant arterial flow limiting disease. No arterial intervention or further arterial workup is indicated currently. 2. The patient reports leg pain that could be consistent with venous hypertension which also correlates with the appearance of the skin of the right lower leg. Classically venous stasis wounds are found at the lower legs and ankles. A contrast enhanced CT venogram will help determine if he has an undiagnosed venous compression syndrome. 3. The patient reports that since his gastric bypass 8 years ago he is no longer hyperglycemic. Despite the reported history of diabetes he is not currently receiving diabetes medications and is almost normoglycemic.
[2019-04-28] MEDS: oxyCODONE TAB* 5 MG TAB PO PRN ×4 (00:40→13:48)
[2019-04-28] MEDS: HYDROmorphone INJ1* 1 MG/ML SYRINGE IV SLOW PU PRN ×4 (00:41→13:49)
[2019-04-28] MEDS: Vancomycin(*) 1,000 MG in NS 0.9% 250 ML* 250 ML IV SCH ×3 (03:05→16:06)
[2019-04-28] MEDS: Cefepime 1 GM in Dextrose(*) 1 GM/50 ML BAG IV SCH (06:25)
[2019-04-28] MEDS: Buprenorp/Nalox 8-2 MG FILM SL FILM SCH ×2 (07:31→13:45)
[2019-04-28] MEDS ORDERED: Vancomycin Trough Check NOTE FOLLOW UP ONE (08:30)
[2019-04-28] MEDS: Mometasone/Formoter 200/5 MDI INH SCH (08:51)
[2019-04-28] MEDS: Pentoxifylline CR TAB* 400 MG PO SCH ×2 (08:55→14:00)
[2019-04-28] MEDS: Gemfibrozil TAB* 600 MG PO SCH (08:56)
[2019-04-28] MEDS: Pantoprazole TAB * 40 MG TAB PO SCH (08:56)
[2019-04-28] MEDS: Gabapentin CAP(*) 400 MG PO SCH ×2 (08:56→13:59)
[2019-04-28] MEDS: Citalopram TAB* 40 MG PO SCH (08:57)
[2019-04-28] MEDS: Lisinopril TAB* 5 MG PO SCH (08:57)
[2019-04-28] MEDS: Metoprolol Succinate XL TAB* 25 MG PO SCH (08:57)
[2019-04-28] MEDS: Tamsulosin CAP* 0.4 MG PO SCH (08:58)
[2019-04-28] MEDS: Nicotine PATCH 21 MG/24 HR* PATCH TRANSDERM SCH (08:58)
[2019-04-28 09:05] LABS: EGFR African American 147.8 (>60); EGFR Non-African American 122.2 (>60)
[2019-04-28] MEDS: Nicotine Patch Removal NOTE PATCH OFF SCH (09:24)
[2019-04-28 09:26] LABS: Vancomycin Trough 12.5 mcg/mL
--- NOTE | 2019-04-28 11:45 | PN ---
Progress Note - Progress Note Date of Service: 04/28/19 SOAP: Subjective: []Pt seen and examined at bedside today. Denies fever, chills, CP, SOB, dizziness, nausea. In less pain today, more comfortable in dependent position. Objective: []Gen: NAD, appears well LLE: Dressing CDI, no erythema proximally R calf supple and nontender Assessment: [] Left diabetic foot infection with ulcer, abscess, and osteomyelitis pod1 sp 1. Left foot transmetatarsal amputation 2. Left Achilles tendon lengthening Wound culture with 2+ gm positive cocci and 3+ gm variable bacilli Plan: []NWB LLE lovenox 40 mg sq qd Vascular consult yesterday, having contrast enhanced CT venogram to evaluate for undiagnosed venous compression syndrome. Per ID: Will go home on Dalvance 1500 mg IV x 1, followed by repeat dose 7 days later. He should also have Cipro 500 mg PO BID for 2 weeks. Followup with ID outpatient. Plan on DC home today Vital Signs Temp 98.1 F 04/28/19 11:13 Pulse 81 04/28/19 11:13 Resp 16 04/28/19 11:13 BP 123/54 04/28/19 11:13 Pulse Ox 95 04/28/19 11:13 Intake & Output 04/27/19 04/28/19 04/28/19 18:59 06:59 18:59 Intake Total 720 3031 78 Output Total 2350 3900 1300 Balance -1630 -869 -1222 Intake: IV Fluids 78 ABX - CEFEPIME 58 NS (0.9%) 20 IVPB 586 ABX - CEFEPIME 58 ABX - VANCOMYCIN 528 Oral 720 2445 Output: Urine 2350 3900 1300 Laboratory Last Values WBC 7.4 10^3/uL (3.5-10.8) 04/27/19 07:50 RBC 3.60 10^6 /uL (4.18-5.48) L 04/27/19 07:50 Hgb 10.7 g/dL (14.0-18.0) L 04/27/19 07:50 Hct 31 % (42-52) L 04/27/19 07:50 MCV 87 fL (80-94) 04/27/19 07:50 MCH 30 pg (27-31) 04/27/19 07:50 MCHC 34 g/dL (31-36) 04/27/19 07:50 RDW 14 % (10-15) 04/27/19 07:50 Plt Count 251 10^3/uL (150-450) 04/27/19 07:50 MPV 8.5 fL (7.4-10.4) 04/27/19 07:50 Neut % (Auto) 70.5 % 04/27/19 07:50 Lymph % (Auto) 17.3 % 04/27/19 07:50 Rooks % (Auto) 8.8 % 04/27/19 07:50 Eos % (Auto) 3.0 % 04/27/19 07:50 Baso % (Auto) 0.4 % 04/27/19 07:50 Absolute Neuts (auto) 5.3 10^3/ul (1.5-7.7) 04/27/19 07:50 Absolute Lymphs (auto) 1.3 10^3/ul (1.0-4.8) 04/27/19 07:50 Absolute Monos (auto) 0.7 10^3/ul (0-0.8) 04/27/19 07:50 Absolute Eos (auto) 0.2 10^3/ul (0-0.6) 04/27/19 07:50 Absolute Basos (auto) 0.0 10^3/ul (0-0.2) 04/27/19 07:50 Absolute Nucleated RBC 0.0 10^3/ul 04/27/19 07:50 Nucleated RBC % 0.1 04/27/19 07:50 ESR 90 mm/Hr (0-14) H 04/23/19 18:31 INR (Anticoag Therapy) 1.14 (0.82-1.09) H 04/25/19 16:35 Sodium 138 mmol/L (135-145) 04/27/19 07:50 Potassium 4.6 mmol/L (3.5-5.0) 04/27/19 07:50 Chloride 103 mmol/L (101-111) 04/27/19 07:50 Carbon Dioxide 29 mmol/L (22-32) 04/27/19 07:50 Anion Gap 6 mmol/L (2-11) 04/27/19 07:50 BUN 13 mg/dL (6-24) 04/28/19 08:41 Creatinine 0.72 mg/dL (0.67-1.17) 04/28/19 08:41 Est GFR ( Amer) 147.8 (>60) 04/28/19 08:41 Est GFR (Non-Af Amer) 122.2 (>60) 04/28/19 08:41 BUN/Creatinine Ratio 16.7 (8-20) 04/27/19 07:50 Glucose 96 mg/dL (70-100) 04/27/19 07:50 POC Glucose (mg/dL) 101 mg/dL (70-100) H 04/28/19 07:30 Hemoglobin A1c 6.5 % (4.0-5.6) H 04/23/19 18:31 Lactic Acid 1.3 mmol/L (0.5-2.0) 04/23/19 18:26 Calcium 8.6 mg/dL (8.6-10.3) 04/27/19 07:50 Iron 49 ug/dL (50-212) L 04/26/19 08:28 TIBC 288 mcg/dL (250-450) 04/26/19 08:28 % Saturation 17 % (15-55) 04/26/19 08:28 Unsat Iron Binding < 273 ug/dL 04/26/19 08:28 Transferrin 206 mg/dL (203-362) 04/26/19 08:28 Ferritin 40.2 ng/mL (24-336) 04/26/19 08:28 Total Bilirubin 0.20 mg/dL (0.2-1.0) 04/23/19 18:31 AST 11 U/L (13-39) L 04/23/19 18:31 ALT 18 U/L (7-52) 04/23/19 18:31 Alkaline Phosphatase 75 U/L (34-104) 04/23/19 18:31 C-Reactive Protein 85.67 mg/L (<8.01) H 04/23/19 18:31 Total Protein 7.0 g/dL (6.4-8.9) 04/23/19 18:31 Albumin 3.8 g/dL (3.2-5.2) 04/23/19 18:31 Globulin 3.2 g/dL (2-4) 04/23/19 18:31 Albumin/Globulin Ratio 1.2 (1-3) 04/23/19 18:31 Vancomycin Trough 12.5 mcg/mL 04/28/19 08:41
[2019-04-28] MEDS: Enoxaparin(*) 40 MG/0.4 ML SYR SUBCUT SCH (12:00)
[2019-04-28] MEDS ORDERED: Iodixanol* (CONTRAST) 320 MG/ML 100 ML SDV IV ONE (13:20)
[2019-04-28 14:39] VITALS: BP 120/71
--- NOTE | 2019-04-29 04:22 | DS ---
DISCHARGE SUMMARY: DATE OF ADMISSION: 04/23/19 DATE OF DISCHARGE: 04/28/19 ATTENDING PHYSICIAN WHILE IN THE HOSPITAL: Dr. Jordana Ivy* (dictated by RAY Orosco). PRIMARY CARE PROVIDER: PEÑA Brice. CONSULTING ORTHOPEDIST: Dr. Leon. CONSULTING INFECTIOUS DISEASE SPECIALIST: Dr. Peralta. PRIMARY DIAGNOSES: 1. Chronic osteomyelitis. 2. Left diabetic foot infection. SECONDARY DIAGNOSES: 1. Charcot deformity of left foot. 2. Diabetes mellitus, type 2. 3. History of methicillin-resistant Staphylococcus aureus. 4. Asthma. 5. Hyperlipidemia. 6. Hypertension. 7. Peripheral neuropathy secondary to diabetes. 8. Morbid obesity. 9. History of gastric bypass surgery. PERTINENT STUDIES WHILE IN THE HOSPITAL: Foot x-ray on 04/23/19, impression: Fracture/dislocation of the second left toe with findings concerning for osteomyelitis of the second metatarsal. ABIs, impression: Normal ABIs bilaterally. There is small reduction in the amplitude of the arterial waveforms recorded on the left pedal arteries relative to the right. Left lower extremity MRI on 04/25/19, impression: Marked edema surrounding the second metatarsal with fluids surrounding the second metatarsal and destruction of the second metatarsal head with edema extending into the proximal diaphysis of the second metatarsal. Findings are consistent with osteomyelitis. Bone marrow edema in the middle cuneiform is also present but may be reactive in nature as no bone marrow replacement is noted currently. CT venogram abdomen and pelvis runoff on 04/28/19, full report is pending, however, verbal report obtained from Dr. Melendez indicates no underlying compression syndrome. PROCEDURES WHILE IN THE HOSPITAL: On 04/26/19, left transmetatarsal amputation with left Achilles tendon lengthening performed by Dr. Leon. PERTINENT LABS WHILE IN THE HOSPITAL: Initial white blood cell count 14.1, later downtrended to normal limits. Initial CRP 85.67. Hemoglobin A1c is 6.5. Wound culture growing Streptococcus intermedius from intraoperative wound on 04/26/19. HISTORY OF PRESENT ILLNESS/HOSPITAL COURSE: Ga Van is a 38-year-old white male with past medical history significant for hypertension, hyperlipidemia, diabetes mellitus type 2 and history of chronic left foot wound , who presented to emergency department on 04/23/19 for left foot pain and wound purulent discharge. The patient was found to have worsening of his left lower extremity wound and ultimately MRI confirmed osteomyelitis. The patient was treated with empiric antibiotics of vancomycin and cefepime while he was in the hospital. He had a transmetatarsal amputation on the left foot on 04/26/[address] Leon. The patient was made nonweightbearing to his lower extremity and his wounds were checked by Orthopedics. The patient was deemed stable by orthopedic team for discharge with plans for close followup in the outpatient setting by the orthopedic team. He was seen by Physical Therapy after his surgery and was deemed safe for discharge with walker due to his nonweightbearing status. The patient is additionally followed by the infectious disease team and recommended to continuing empiric coverage with vancomycin and started to plan for outpatient prolonged antibiotics, which is further described below in the discharge plan. Additionally, the patient was seen in consultation by interventionalist radiologist, Dr. Melendez, per recommendation of Dr. Leon due to the patient's history of poorly healing wounds. His ABIs were normal, however, due to his chronic lower extremity skin changes, Dr. Melendez had concern for compression syndrome and ordered CT venogram. At the time of discharge, there is not a full report; however, I did discuss the image with Dr. Melendez, who overtly states that there is no compression syndrome and does not believe there is any further need to prevent him from going home at this time. The patient was afebrile during the entirety of hospital stay and his leukocytosis resolved. By the day of discharge, he has no complaints. He does still have pain but he feels overall comfortable. He has already restarted his home Suboxone, which was helping. His home Suboxone was restarted, however, he was declining it in the last 2 days of hospitalization. DISCHARGE INSTRUCTIONS: He and I had discussed that he should continue his Suboxone at home and if he is having severe pain to use the oxycodone as prescribed and if he is having issues with pain control to discuss that was his provider at [facility]. The patient is to follow up with Dr. Leon in 1 week. At this time, he will have wound evaluation. He is to have IV infusions at the infusion center 1 time of Dalvance and then 7 days later additional dose of Dalvance. He is advised to continue his oral ciprofloxacin until completion. He was advised to follow up with the infectious disease team as well. He was advised to report to the infusion center tomorrow morning and he is advised to follow up with his primary care provider within week of this discharge. He should have outpatient repeat CRP, CMP, CBC weekly. He is advised to please return to the emergency department for shortness of breath, fever, chills, chest pain, purulent drainage from his wound site, red streaking of his extremities. DISCHARGE MEDICATIONS: Continued home medications: 1. Tylenol 650 mg p.o. q.4 hours p.r.n. pain. 2. Albuterol inhaler 1 inhalation q.4 hours p.r.n. shortness of breath/ wheezing. 3. Xanax 1 tab p.o. t.i.d. p.r.n. anxiety. 4. Suboxone 1 film p.o. t.i.d. 5. Citalopram 40 mg p.o. at bedtime. 6. Advair Diskus 500/50 one puff inhaled b.i.d. 7. Gabapentin 800 mg p.o. t.i.d. 8. Gemfibrozil 600 mg p.o. b.i.d. 9. Lisinopril 5 mg p.o. daily. 10. Metoprolol succinate 25 mg p.o. daily. 11. Omeprazole 20 mg p.o. daily. 12. Pentoxifylline 400 mg p.o. q.8. 13. Flomax 0.4 mg p.o. daily. New medications: 1. Ciprofloxacin 500 mg p.o. b.i.d. x2 weeks. 2. Dalvance 1500 mg IV x1 dose tomorrow, then 7 days later. 3. Lovenox 40 mg subcu q.24 hours. 4. Nicotine patch 21 mg/24 hours 1 patch transdermally daily. 5. Oxycodone 5 mg p.o. q.6 hours p.r.n. severe pain (3-day supply provided). 6. Nicotine gum 2 mg p.o. q.2 hours p.r.n. cravings. DIET: Low carbohydrate diet. ACTIVITY: Nonweightbearing to left lower extremity until further determined by orthopedic team. CONDITION ON DISCHARGE: Stable. DISPOSITION: Home. TIME SPENT: Approximately 40 minutes was spent on this discharge, approximately half this time was spent at bedside evaluating the patient and discussing the plan of care. ARY OROSCO [id number]/[facility] #: [id number] EDUARD
== END 2019-04-28 16:52 | disposition home or self-care (01) | DRG 854 ==
LOC: ED 17:31 → SSU 20:19
PROVIDERS: ADMIT Student in an Organized Health Care Education/Training Program; ATTEND Internal Medicine
PROC: 0L8P0ZZ Division of Left Lower Leg Tendon, Open Approach (ICD-10-PCS; 2019-04-26)
PROC: 0Y6N0ZB Detachment at Left Foot, Partial 2nd Ray, Open Approach (ICD-10-PCS; principal; 2019-04-26 15:45)
DX: A41.9 Sepsis, unspecified organism (principal); M86.672 Other chronic osteomyelitis, left ankle and foot; L02.612 Cutaneous abscess of left foot; L03.116 Cellulitis of left lower limb; Z68.41 Body mass index [BMI] 40.0-44.9, adult; E11.69 Type 2 diabetes mellitus with other specified complication; E78.5 Hyperlipidemia, unspecified; I10 Essential (primary) hypertension; E11.610 Type 2 diabetes mellitus with diabetic neuropathic arthropathy; E11.621 Type 2 diabetes mellitus with foot ulcer; L97.529 Non-pressure chronic ulcer of other part of left foot with unspecified severity; F17.210 Nicotine dependence, cigarettes, uncomplicated; N40.0 Benign prostatic hyperplasia without lower urinary tract symptoms; J45.909 Unspecified asthma, uncomplicated; E11.42 Type 2 diabetes mellitus with diabetic polyneuropathy; E66.01 Morbid (severe) obesity due to excess calories; Z89.412 Acquired absence of left great toe; Z89.422 Acquired absence of other left toe(s); Z88.1 Allergy status to other antibiotic agents; Z89.421 Acquired absence of other right toe(s); Z98.84 Bariatric surgery status; Z79.899 Other long term (current) drug therapy
CPT/HCPCS: 36415; 74178; 80048; 80053; 80202; 82565; 82728; 83036; 83540; 83550; 83605; 84520; 85025; 85027; 85610; 85652; 86140; 87040; 87070; 87073; 87077; 87186; 87205; 87640; 87641; 88307; 88311; 93005; 93922; 94640; 96365; 99284; A9270-GY; J0692; J1170; J1650; J1885; J2250; J2270; J2405; J2704; J3010; J3370; J3490; Q9967

== ENCOUNTER 2020-12-31 15:50 | Inpatient (IN) ==
[2020-12-31] MEDS ORDERED: Lactated Ringers 1000 ml BAG IV.FLUID IV ONE (16:15)
[2020-12-31 16:49] LABS: ABS Lymphocytes 0.1 10^3/ul (1.0-4.8); ABS Monocytes 0.1 10^3/ul (0-0.8); ABS Neutrophils 8.5 10^3/ul (1.5-7.7); Eosinophil % 0.1 %; Hematocrit 36 % (42-52); Hemoglobin 12.5 g/dL (14.0-18.0); Lymphocyte % 1.4 %; Mean Corpuscular HGB Conc 35 g/dL (31-36); Mean Corpuscular Hemoglobin 30 pg (27-31); Mean Corpuscular Volume 87 fL (80-94); Mean Platelet Volume 9.5 fL (7.4-10.4); Platelet Count 161 10^3/uL (150-450); Red Blood Count 4.14 10^6 /uL (4.18-5.48); Red Cell Distribution Width 15 % (10-15); White Blood Count 8.7 10^3/uL (3.5-10.8)
[2020-12-31 17:08] LABS: Albumin/Globulin Ratio 1.4 (1-3); C Reactive Protein 100.21 mg/L (<8.01); Calcium 8.8 mg/dL (8.6-10.3); Globulin 2.9 g/dL (2-4); Potassium 3.5 mmol/L (3.5-5.0); Total Bilirubin 0.8 mg/dL (0.2-1.0); Total Protein 6.9 g/dL (6.4-8.9)
[2020-12-31 17:09] LABS: Activated Partial Thrombo Time 32.6 seconds (26.0-38.0); INR 1.21 (0.86-1.15); Rapid COVID-19 Molecular Undetected (Undetected); Troponin I 0.01 ng/mL (<0.03)
[2020-12-31] MEDS ORDERED: Lactated Ringers 1000 ml BAG 1,000 ML IV ONE (17:28)
[2020-12-31] MEDS ORDERED: Vancomycin 2,000 MG in NS 0.9% 500 ml BAG 500 ML IVPB ONE (18:00)
[2020-12-31] MEDS ORDERED: Vancomycin 2,000 MG in NS 0.9% 250 ml 250 ML IVPB ONE (18:00)
[2020-12-31] MEDS ORDERED: Nicotine PATCH 14 MG/24 HR PATCH TRANSDERM ONE (18:00)
[2020-12-31] MEDS ORDERED: Acetaminophen IV 1 GM/100ML 100 ML IV ONE (20:46)
[2020-12-31] MEDS ORDERED: Piperacillin/Tazobac ADVAN 3.375 GM in NS 0.9% 100 ml BAG 100 ML IV ONE (21:04)
[2020-12-31] MEDS ORDERED: Zosyn per Pharmacy NOTE FOLLOW UP SCH (22:00)
[2020-12-31] MEDS ORDERED: Lactated Ringers 500 ml BAG 500 ML IV ONE (22:27)
[2020-12-31] MEDS ORDERED: Albuterol HFA INHALER 8 gm MDI INH PRN (22:33)
[2020-12-31 22:36] LABS: Hematocrit 34 % (42-52); Hemoglobin 11.6 g/dL (14.0-18.0); Mean Corpuscular HGB Conc 34 g/dL (31-36); Mean Corpuscular Hemoglobin 30 pg (27-31); Mean Corpuscular Volume 87 fL (80-94); Mean Platelet Volume 9.3 fL (7.4-10.4); Platelet Count 140 10^3/uL (150-450); Red Blood Count 3.93 10^6 /uL (4.18-5.48); Red Cell Distribution Width 15 % (10-15); White Blood Count 12.7 10^3/uL (3.5-10.8)
[2020-12-31] MEDS: Norepinephrine 16MCG/ML IVPRE 4,000 MCG/250 ML BAG IV SCH (22:36)
[2020-12-31] MEDS ORDERED: Hydrocortisone INJ 250 MG VIAL IV ONE (22:40)
[2020-12-31 22:50] LABS: Calcium 8.3 mg/dL (8.6-10.3); Potassium 4.2 mmol/L (3.5-5.0)
[2020-12-31 22:51] LABS: Influenza A Molecular Negative (Negative); Influenza B Molecular Negative (Negative)
[2020-12-31] MEDS ORDERED: Lactated Ringers 1000 ml BAG 1,000 ML IV SCH (23:00)
[2020-12-31 23:04] LABS: RBC Morphology Normal (Normal)
[2020-12-31 23:05] LABS: ABS Lymphocytes 0.1 10^3/ul (1.0-4.8); ABS Monocytes 0.3 10^3/ul (0-0.8); ABS Neutrophils 12.3 10^3/ul (1.5-7.7); Eosinophil % 0.1 %; Lymphocyte % 1.2 %
[2020-12-31 23:38] LABS: TSH Ultra Thyroid Stim Horm 1.41 mcIU/mL (0.34-5.60)
[2021-01-01 00:29] LABS: PCO2 Arterial 35 mmHg (35-45)
[2021-01-01 00:35] LABS: PO2 Arterial 53 mmHg (80-100)
[2021-01-01 01:45] LABS: Urine Appearance Clear; Urine Bilirubin Negative (Negative); Urine Blood Negative (Negative); Urine Color Amber; Urine Glucose Negative (Negative); Urine Ketones Negative (Negative); Urine Nitrite Negative (Negative); Urine Protein Negative (Negative); Urine Urobilinogen Negative (Negative)
[2021-01-01 01:51] LABS: INR 1.49 (0.86-1.15)
[2021-01-01 02:00] LABS: Erythrocyte Sed Rate 30 mm/Hr (0-14)
[2021-01-01] MEDS ORDERED: Dextrose 50% Syringe 50 ml 25 GM/50 ML SYRINGE IV PUSH PRN (02:01)
[2021-01-01] MEDS ORDERED: Acetaminophen IV 1 GM/100ML 100 ML IV PRN ×2 (03:10→13:05)
[2021-01-01] MEDS ORDERED: ZOSYN 3.375 GM x ONE DOSE over 30 miuntes IV (04:30)
[2021-01-01] MEDS ORDERED: Lactated Ringers 1000 ml BAG 1,000 ML IV SCH (04:33)
[2021-01-01] MEDS: Heparin 5000 UNITS/ML 1 mL VIAL SUBCUT SCH ×3 (05:02→20:19)
[2021-01-01] MEDS: Norepinephrine 16MCG/ML IVPRE 4,000 MCG/250 ML BAG IV SCH (05:18)
[2021-01-01] MEDS: Mometasone/Formoter 100/5 MDI INH SCH ×2 (07:28→19:44)
[2021-01-01] MEDS ORDERED: Norepinephrine 16MCG/ML IVPRE 4,000 MCG/250 ML BAG IV SCH ×2 (07:39→15:00)
[2021-01-01 07:48] LABS: ABS Lymphocytes 0.1 10^3/ul (1.0-4.8); ABS Monocytes 0.3 10^3/ul (0-0.8); ABS Neutrophils 15.1 10^3/ul (1.5-7.7); Eosinophil % 0.1 %; Hematocrit 33 % (42-52); Hemoglobin 11.1 g/dL (14.0-18.0); Lymphocyte % 0.8 %; Mean Corpuscular HGB Conc 34 g/dL (31-36); Mean Corpuscular Hemoglobin 30 pg (27-31); Mean Corpuscular Volume 89 fL (80-94); Mean Platelet Volume 10.7 fL (7.4-10.4); Platelet Count 126 10^3/uL (150-450); Red Blood Count 3.73 10^6 /uL (4.18-5.48); Red Cell Distribution Width 15 % (10-15); White Blood Count 15.6 10^3/uL (3.5-10.8)
[2021-01-01 07:58] LABS: Albumin 3.2 g/dL (3.2-5.2); Albumin/Globulin Ratio 1.2 (1-3); Calcium 7.5 mg/dL (8.6-10.3); Globulin 2.6 g/dL (2-4); Magnesium 1.1 mg/dL (1.9-2.7); Phosphorus 3.6 mg/dL (2.5-5.0); Total Bilirubin 0.6 mg/dL (0.2-1.0); Total Protein 5.8 g/dL (6.4-8.9)
[2021-01-01] MEDS ORDERED: Magnesium Sulf 4 GM/100 ML IV 4,000 MG/100 ML BAG IVPB ONE (08:55)
[2021-01-01] MEDS ORDERED: Buprenorp/Nalox 8-2 MG FILM SL FILM SCH (09:00)
[2021-01-01] MEDS: Buprenorp/Nalox 4-1 MG FILM SL FILM SCH ×2 (09:15→12:25)
[2021-01-01] MEDS: Hydrocortisone INJ 100 MG/2ML 2 ML VIAL IV SCH ×2 (09:16→16:32)
[2021-01-01] MEDS: ZOSYN 3.375 GM Q8H per EXTENDED INFUSION IV SCH ×2 (09:44→16:42)
[2021-01-01] MEDS: Buprenorp/Nalox 8-2 MG FILM SL FILM SCH ×2 (14:18→20:19)
[2021-01-01] MEDS: Gemfibrozil 600 mg PO SCH (20:19)
[2021-01-02] MEDS: cefTRIAXone 2 GM ADDV.VIAL 2 GM in NS 0.9% 100 ml BAG 100 ML IV SCH (01:13)
[2021-01-02] MEDS: Hydrocortisone INJ 100 MG/2ML 2 ML VIAL IV SCH ×3 (01:13→21:15)
[2021-01-02] MEDS: Heparin 5000 UNITS/ML 1 mL VIAL SUBCUT SCH (05:40)
[2021-01-02 06:32] LABS: ABS Lymphocytes 0.4 10^3/ul (1.0-4.8); ABS Monocytes 0.4 10^3/ul (0-0.8); ABS Neutrophils 7.5 10^3/ul (1.5-7.7); Eosinophil % 0.3 %; Hematocrit 31 % (42-52); Hemoglobin 10.5 g/dL (14.0-18.0); Mean Corpuscular HGB Conc 34 g/dL (31-36); Mean Corpuscular Hemoglobin 30 pg (27-31); Mean Corpuscular Volume 88 fL (80-94); Red Blood Count 3.48 10^6 /uL (4.18-5.48); Red Cell Distribution Width 15 % (10-15); White Blood Count 8.4 10^3/uL (3.5-10.8)
[2021-01-02 06:35] LABS: Albumin 3.1 g/dL (3.2-5.2); Albumin/Globulin Ratio 1.1 (1-3); Calcium 8.1 mg/dL (8.6-10.3); Globulin 2.7 g/dL (2-4); Magnesium 2.4 mg/dL (1.9-2.7); Phosphorus 2.6 mg/dL (2.5-5.0); Potassium 4.6 mmol/L (3.5-5.0); Total Bilirubin 0.3 mg/dL (0.2-1.0); Total Protein 5.8 g/dL (6.4-8.9)
[2021-01-02 07:03] LABS: RBC Morphology Normal (Normal)
[2021-01-02 07:04] LABS: Mean Platelet Volume 10.3 fL (7.4-10.4); Platelet Count 72 10^3/uL (150-450)
[2021-01-02] MEDS: Mometasone/Formoter 100/5 MDI INH SCH ×2 (07:31→21:02)
[2021-01-02] MEDS: Buprenorp/Nalox 8-2 MG FILM SL FILM SCH ×3 (08:57→21:15)
[2021-01-02] MEDS: Gemfibrozil 600 mg PO SCH ×2 (08:57→21:15)
[2021-01-02] MEDS ORDERED: Budesonide/Formote 80/4.5(NF) MDI INH SCH (09:00)
[2021-01-02] MEDS: Nicotine PATCH 21 MG/24 HR PATCH TRANSDERM SCH (14:55)
[2021-01-03] MEDS: cefTRIAXone 2 GM ADDV.VIAL 2 GM in NS 0.9% 100 ml BAG 100 ML IV SCH (02:09)
[2021-01-03 05:35] LABS: ABS Lymphocytes 1.1 10^3/ul (1.0-4.8); ABS Monocytes 0.5 10^3/ul (0-0.8); ABS Neutrophils 6.6 10^3/ul (1.5-7.7); Eosinophil % 0.5 %; Hematocrit 31 % (42-52); Hemoglobin 10.5 g/dL (14.0-18.0); Lymphocyte % 13.2 %; Mean Corpuscular HGB Conc 34 g/dL (31-36); Mean Corpuscular Hemoglobin 29 pg (27-31); Mean Corpuscular Volume 87 fL (80-94); Mean Platelet Volume 10.1 fL (7.4-10.4); Platelet Count 70 10^3/uL (150-450); Red Blood Count 3.59 10^6 /uL (4.18-5.48); Red Cell Distribution Width 15 % (10-15); White Blood Count 8.2 10^3/uL (3.5-10.8)
[2021-01-03 05:38] LABS: Albumin 3.3 g/dL (3.2-5.2); Calcium 8.7 mg/dL (8.6-10.3); Magnesium 1.9 mg/dL (1.9-2.7); Potassium 4.6 mmol/L (3.5-5.0); Total Bilirubin 0.2 mg/dL (0.2-1.0)
[2021-01-03 05:44] LABS: Albumin/Globulin Ratio 1.1 (1-3); Globulin 2.9 g/dL (2-4); Phosphorus 2.8 mg/dL (2.5-5.0); Total Protein 6.2 g/dL (6.4-8.9)
[2021-01-03] MEDS ORDERED: Magnesium Sulfate IV 1GM/100ML 1 GM/100 ML BAG IV ONE (06:27)
[2021-01-03] MEDS ORDERED: Magnesium Sulfate 2 gm BAG 0 GM/0 ML BAG ONE (06:43)
[2021-01-03] MEDS: Gemfibrozil 600 mg PO SCH (07:39)
[2021-01-03] MEDS: Hydrocortisone INJ 100 MG/2ML 2 ML VIAL IV SCH (07:40)
[2021-01-03] MEDS: Nicotine PATCH 21 MG/24 HR PATCH TRANSDERM SCH (07:40)
[2021-01-03] MEDS: Buprenorp/Nalox 8-2 MG FILM SL FILM SCH ×2 (07:40→13:09)
[2021-01-03] MEDS: Mometasone/Formoter 100/5 MDI INH SCH (07:52)
[2021-01-03 09:59] LABS: C Reactive Protein 103.98 mg/L (<8.01)
[2021-01-03] MEDS ORDERED: Midazolam 5 mg/5 ml VIAL 1 mg/ml 5 ml VIAL (5 mg) ONE (11:22)
[2021-01-03] MEDS ORDERED: Flumazenil 0.5 mg/5 ml 0.1 MG/ML 5 ml VIAL ONE (11:22)
[2021-01-03] MEDS ORDERED: Naloxone 0.4 mg VIAL 0.4 mg/ml 1 ml VIAL ONE (11:22)
[2021-01-03] MEDS ORDERED: fentaNYL 100 mcg/2 ml 50 MCG/ML VIAL ONE (11:22)
[2021-01-03 16:08] VITALS: BP 130/72
== END 2021-01-03 16:00 | disposition home or self-care (01) | DRG 871 ==
LOC: ED 15:50 → EDHOLD 20:38 → ICU 01-01 02:54
PROVIDERS: ADMIT Internal Medicine Critical Care Medicine; ATTEND Internal Medicine Critical Care Medicine